=== PATIENT | female | born 1950 | race Caucasian/White ===

== ENCOUNTER 2016-10-18 21:22 | Inpatient (IN) | payer MEDICARE ==
[2016-10-18 23:00] LABS: Hematocrit 20 % (35-47); Hemoglobin 6.5 g/dl (12.0-16.0); Mean Corpuscular HGB Conc 34 g/dl (31-36); Mean Corpuscular Hemoglobin 33 pg (27-31); Mean Corpuscular Volume 98 fL (80-97); Mean Platelet Volume 8 um3 (7.4-10.4); Red Blood Count 1.99 10^6/ul (4.0-5.4)
[2016-10-18 23:04] LABS: Comments Flag Yes
[2016-10-18 23:05] LABS: Red Cell Distribution Width 26 % (10.5-15); White Blood Count 1.8 10^3/ul (3.5-10.8)
[2016-10-18 23:08] LABS: Add Diff/Slide Review? Slide Review Added
[2016-10-18 23:18] LABS: Albumin 3.4 g/dL (3.2-5.2); BUN/Creatinine Ratio 9.3 (8-20); C Reactive Protein 85.44 mg/L (< 5.00); Calcium 7.8 mg/dL (8.6-10.3); EGFR African American 74.1 (>60); EGFR Non-African American 57.6 (>60); Potassium 3.3 mmol/L (3.5-5.0); Total Bilirubin 0.6 mg/dL (0.2-1.0); Total Protein 5.4 g/dL (6.4-8.9)
[2016-10-18 23:19] LABS: Troponin I 0.01 ng/mL (<0.04)
[2016-10-18] MEDS ORDERED: Cefepime(*) 2 GM in NS 0.9% 50 ML* 50 ML IVPB ONE (23:20)
[2016-10-18] MEDS ORDERED: NS 0.9% 50 ML* 50 ML ONE (23:23)
--- NOTE | 2016-10-18 23:36 | HP ---
H&P (Free Text) History and Physical: PCP: Vito Carlson MD Oncology: Zunilda Rojas MD Cardiology: Zunilda Plunkett MD Date/Time of Evaluation: 10/18/2015 2330 CC: fever HPI: Mrs Hernandez is a 66YO female HX multiple myeloma on therapy who reports upper respiratory symptoms of mild congestion and cough productive of scant green phlegm for the past ~1 week. Today she developed a fever at home of 101.5F via otic thermometer confirmed orally. She called Joanna Mckeon MD oncology on- call who advised her to present for evaluation. She denies N/V/D, headache, earache, sore throat, abdominal pain, SOB, rash, or wound. Work up is notable for an ANC of 0.6k. Vitals are stable with soft pressures (nursing confirmed the 67/33 was not accurate). Labs shows stable pancytopenia & stable renal function. CXR is negative. UA is negative. PMedHx multiple myeloma on therapy s/p failed bone marrow transplant spontaneous subdural hematoma s/p evacuation while on warfarin CAD/NM/2vCABG ischemic cardiomyopathy w/ AICD placement, EF 30-35% HLD hypothyroidism peptic ulcer disease BPV Allergies Penicillins [PCN] Allergy (Verified 10/19/16 00:10) Unknown Reaction Details Tramadol Adverse Reaction (Intermediate, Verified 10/19/16 00:10) GI Upset Ambulatory Orders Atorvastatin* [Lipitor*] 10 mg PO BEDTIME 07/27/12 Liothyronine Sodium [Cytomel] 5 mcg PO QAM 07/27/12 Carvedilol TAB* [Coreg TAB*] 0.5 tab PO BID 12/02/15 LORazepam TAB(*) [Ativan TAB(*)] 0.5 mg PO BEDTIME PRN 12/02/15 Ondansetron TAB* [Zofran Tab*] 4 mg PO Q6H PRN 12/02/15 Nutritional Supplements [Boost] 1 - 2 dose PO DAILY 05/31/16 oxyCODONE TAB* [Roxycodone TAB 5 mg*] 0.5 - 1 tab PO Q12H PRN 05/31/16 Levothyroxine TAB* [Synthroid 75 MCG TAB*] 75 mcg PO 0600 tab 06/26/16 Aspirin [Aspirin Adult Low Dose] 81 mg PO DAILY 10/19/16 Dexamethasone 40 mg PO WEEKLY 10/19/16 ValACYclovir (*) [Valtrex 500 mg (*)] 500 mg PO DAILY 10/19/16 PSurgHx B subdural evacuation tonsillectomy AICD placement 2vCABG bone marrow transplant SocHx: no tobacco, alcohol, or recreational drugs; retired insurance business analyst; lives with her , has 2 adult sons; full code status FamHx: reviewed, non-contributory ROS: as above, otherwise reviewed and all were negative Constitutional: NAD, normally developed, thin elderly white female vitals: Vital Signs Temp 36.8 C 10/19/16 00:23 Pulse 69 10/19/16 01:00 Resp 18 10/18/16 21:31 BP 90/58 10/19/16 01:00 Pulse Ox 97 10/19/16 01:00 Intake & Output 10/18/16 10/18/16 10/19/16 11:59 23:59 11:59 Intake Total 50 Balance 50 Weight 110 lb Intake: IV Fluids 50 HEENM: atraumatic; sclera/conjunctiva: non-icteric/clear; hearing: clinically intact; oropharynx: clear, mucosa moist Neck: soft tissue: non-tender, no nuchal rigidity; thyroid: normal Pulmonary: clear to auscultation bilaterally, good aeration, no accessory muscle use CV: RR/RR, normal S1S2, no carotid bruit, no jugular venous distention, 2+ B DP/ PT, no edema Abdominal: soft, non-distended, non-tender, no rebound/guarding/rigidity, normoactive bowel sounds, no hepatosplenomegaly or masses, no costovertebral angle tenderness Musculoskeletal: general: grossly intact; gait: stable Integumental: normal appearance and texture Psychiatric orientation: AA&O to PPS affect: pleasant mood: cooperative eye contact: good content: reliable responses: timely insight: good Testing: Lab Results 10/18/16 10/18/16 10/18/16 Range/Units 00:15 22:45 22:45 WBC 1.8 L (3.5-10.8) 10^3/ul RBC 1.99 L (4.0-5.4) 10^6/ul Hgb 6.5 L (12.0-16.0) g/dl Hct 20 L (35-47) % MCV 98 H (80-97) fL MCH 33 H (27-31) pg MCHC 34 (31-36) g/dl RDW 26 H (10.5-15) % Plt Count 74 L (150-450) 10^3/ul MPV 8 (7.4-10.4) um3 Neut % (Auto) 35.7 L (38-83) % Lymph % (Auto) 34.1 (25-47) % [place] % (Auto) 25.8 H (1-9) % Eos % (Auto) 3.1 (0-6) % Baso % (Auto) 1.3 (0-2) % Absolute Neuts (auto) 0.6 L* (1.5-7.7) 10^3/ul Absolute Lymphs (auto) 0.6 L (1.0-4.8) 10^3/ul Absolute Monos (auto) 0.5 (0-0.8) 10^3/ul Absolute Eos (auto) 0.1 (0-0.6) 10^3/ul Absolute Basos (auto) 0 (0-0.2) 10^3/ul Absolute Nucleated RBC 0 10^3/ul Nucleated RBC % 0.1 ESR (0-40) mm/Hr INR (Anticoag Therapy) 1.17 H (0.89-1.11) APTT 26.9 (26.0-36.3) seconds Sodium (133-145) mmol/L Potassium (3.5-5.0) mmol/L Chloride (101-111) mmol/L Carbon Dioxide (22-32) mmol/L Anion Gap (2-11) mmol/L BUN (6-24) mg/dL Creatinine (0.51-0.95) mg/dL Est GFR ( Amer) (>60) Est GFR (Non-Af Amer) (>60) BUN/Creatinine Ratio (8-20) Glucose (70-100) mg/dL Lactic Acid (0.5-2.0) mmol/L Calcium (8.6-10.3) mg/dL Total Bilirubin (0.2-1.0) mg/dL AST (13-39) U/L ALT (7-52) U/L Alkaline Phosphatase (34-104) U/L Troponin I (<0.04) ng/mL C-Reactive Protein (< 5.00) mg/L Total Protein (6.4-8.9) g/dL Albumin (3.2-5.2) g/dL Globulin (2-4) g/dL Albumin/Globulin Ratio (1-3) Urine Color Straw Urine Appearance Clear Urine pH 7.0 (5-9) Ur Specific [place] 1.003 L (1.010-1.030) Urine Protein Negative (Negative) Urine Ketones Negative (Negative) Urine Blood 1+ H (Negative) Urine Nitrate Negative (Negative) Urine Bilirubin Negative (Negative) Urine Urobilinogen Negative (Negative) Ur Leukocyte Esterase Negative (Negative) Urine WBC (Auto) Absent (Absent) Urine RBC (Auto) Trace(0-2/hpf) (Absent) Urine Bacteria Absent (Absent) Urine Glucose Negative (Negative) Influenza A (Rapid) (Negative) Influenza B (Rapid) (Negative) Blood Type Antibody Screen 10/18/16 10/18/16 10/18/16 Range/Units 22:45 22:45 22:45 WBC (3.5-10.8) 10^3/ul RBC (4.0-5.4) 10^6/ul Hgb (12.0-16.0) g/dl Hct (35-47) % MCV (80-97) fL MCH (27-31) pg MCHC (31-36) g/dl RDW (10.5-15) % Plt Count (150-450) 10^3/ul MPV (7.4-10.4) um3 Neut % (Auto) (38-83) % Lymph % (Auto) (25-47) % [place] % (Auto) (1-9) % Eos % (Auto) (0-6) % Baso % (Auto) (0-2) % Absolute Neuts (auto) (1.5-7.7) 10^3/ul Absolute Lymphs (auto) (1.0-4.8) 10^3/ul Absolute Monos (auto) (0-0.8) 10^3/ul Absolute Eos (auto) (0-0.6) 10^3/ul Absolute Basos (auto) (0-0.2) 10^3/ul Absolute Nucleated RBC 10^3/ul Nucleated RBC % ESR (0-40) mm/Hr INR (Anticoag Therapy) (0.89-1.11) APTT (26.0-36.3) seconds Sodium 132 L (133-145) mmol/L Potassium 3.3 L (3.5-5.0) mmol/L Chloride 104 (101-111) mmol/L Carbon Dioxide 18 L (22-32) mmol/L Anion Gap 10 (2-11) mmol/L BUN 9 (6-24) mg/dL Creatinine 0.97 H (0.51-0.95) mg/dL Est GFR ( Amer) 74.1 (>60) Est GFR (Non-Af Amer) 57.6 (>60) BUN/Creatinine Ratio 9.3 (8-20) Glucose 100 (70-100) mg/dL Lactic Acid 0.6 (0.5-2.0) mmol/L Calcium 7.8 L (8.6-10.3) mg/dL Total Bilirubin 0.60 (0.2-1.0) mg/dL AST 33 (13-39) U/L ALT 45 (7-52) U/L Alkaline Phosphatase 86 (34-104) U/L Troponin I 0.01 (<0.04) ng/mL C-Reactive Protein 85.44 H (< 5.00) mg/L Total Protein 5.4 L (6.4-8.9) g/dL Albumin 3.4 (3.2-5.2) g/dL Globulin 2.0 (2-4) g/dL Albumin/Globulin Ratio 1.7 (1-3) Urine Color Urine Appearance Urine pH (5-9) Ur Specific [place] (1.010-1.030) Urine Protein (Negative) Urine Ketones (Negative) Urine Blood (Negative) Urine Nitrate (Negative) Urine Bilirubin (Negative) Urine Urobilinogen (Negative) Ur Leukocyte Esterase (Negative) Urine WBC (Auto) (Absent) Urine RBC (Auto) (Absent) Urine Bacteria (Absent) Urine Glucose (Negative) Influenza A (Rapid) (Negative) Influenza B (Rapid) (Negative) Blood Type O Negative Antibody Screen Negative 10/18/16 10/18/16 Range/Units 22:54 23:10 WBC (3.5-10.8) 10^3/ul RBC (4.0-5.4) 10^6/ul Hgb (12.0-16.0) g/dl Hct (35-47) % MCV (80-97) fL MCH (27-31) pg MCHC (31-36) g/dl RDW (10.5-15) % Plt Count (150-450) 10^3/ul MPV (7.4-10.4) um3 Neut % (Auto) (38-83) % Lymph % (Auto) (25-47) % Coffee % (Auto) (1-9) % Eos % (Auto) (0-6) % Baso % (Auto) (0-2) % Absolute Neuts (auto) (1.5-7.7) 10^3/ul Absolute Lymphs (auto) (1.0-4.8) 10^3/ul Absolute Monos (auto) (0-0.8) 10^3/ul Absolute Eos (auto) (0-0.6) 10^3/ul Absolute Basos (auto) (0-0.2) 10^3/ul Absolute Nucleated RBC 10^3/ul Nucleated RBC % ESR > 120 H (0-40) mm/Hr INR (Anticoag Therapy) (0.89-1.11) APTT (26.0-36.3) seconds Sodium (133-145) mmol/L Potassium (3.5-5.0) mmol/L Chloride (101-111) mmol/L Carbon Dioxide (22-32) mmol/L Anion Gap (2-11) mmol/L BUN (6-24) mg/dL Creatinine (0.51-0.95) mg/dL Est GFR ( Amer) (>60) Est GFR (Non-Af Amer) (>60) BUN/Creatinine Ratio (8-20) Glucose (70-100) mg/dL Lactic Acid (0.5-2.0) mmol/L Calcium (8.6-10.3) mg/dL Total Bilirubin (0.2-1.0) mg/dL AST (13-39) U/L ALT (7-52) U/L Alkaline Phosphatase (34-104) U/L Troponin I (<0.04) ng/mL C-Reactive Protein (< 5.00) mg/L Total Protein (6.4-8.9) g/dL Albumin (3.2-5.2) g/dL Globulin (2-4) g/dL Albumin/Globulin Ratio (1-3) Urine Color Urine Appearance Urine pH (5-9) Ur Specific [place] (1.010-1.030) Urine Protein (Negative) Urine Ketones (Negative) Urine Blood (Negative) Urine Nitrate (Negative) Urine Bilirubin (Negative) Urine Urobilinogen (Negative) Ur Leukocyte Esterase (Negative) Urine WBC (Auto) (Absent) Urine RBC (Auto) (Absent) Urine Bacteria (Absent) Urine Glucose (Negative) Influenza A (Rapid) Negative (Negative) Influenza B (Rapid) Negative (Negative) Blood Type Antibody Screen CXR, personally reviewed: no acute process Impression: 66F HX multiple myeloma s/p failed bone marrow transplant on therapy presents with neutropenic fever 2nd acute bronchitis DIAGNOSIS & PLAN Primary neutropenic fever 2nd acute bronchitis : IV cefepime 2g Q8H : blood, urine, & sputum CXs : influenza negative : IVFs : neutropenic precautions : supportive care pancytopenia with macrocytic anemia : stable : type & screen : stool for occult blood : plan to observe for now given no clinical evidence of bleeding Secondary multiple myeloma : on therapy : s/p failed bone marrow transplant : oncology to manage spontaneous subdural hematoma : occurred while on warfarin : currently thrombocytopenic : will avoid anticoagulation CAD/NM/2vCABG : continue aspirin ischemic cardiomyopathy w/ AICD placement, EF 30-35% : cautious use of IVFs, monitor respiratory status : continue carvediolol HLD : continue atorvastatin hypothyroidism : continue levothyroxine & liothyronine peptic ulcer disease : omeprazole Admission Rational: inpatient for management of neutropenic fever inappropriate for outpatient setting DVTp: SCDs, hold anticoagulation 2nd thrombocytopenia & HX spontaneous ICH on warfarin Code Status: full HCP:
[2016-10-19 00:45] LABS: Urine Bacteria Absent (Absent); Urine Bilirubin Negative (Negative); Urine Glucose Negative (Negative); Urine Nitrite Negative (Negative)
[2016-10-19] MEDS ORDERED: Melatonin (NF) 3 MG TAB PO PRN (01:35)
[2016-10-19] MEDS ORDERED: oxyCODONE TAB* 5 MG TAB PO PRN (01:37)
[2016-10-19] MEDS: NS 0.9% 1000 ML* 1,000 ML IV SCH ×3 (03:12→20:27)
[2016-10-19] MEDS: Levothyroxine TAB* 75 MCG TAB PO SCH (05:25)
[2016-10-19] MEDS: Omeprazole CAP* 20 MG PO SCH (05:25)
[2016-10-19 06:41] LABS: Hematocrit 17 % (35-47); Mean Corpuscular HGB Conc 34 g/dl (31-36); Mean Corpuscular Hemoglobin 33 pg (27-31); Mean Corpuscular Volume 97 fL (80-97); Mean Platelet Volume 7 um3 (7.4-10.4); Red Blood Count 1.78 10^6/ul (4.0-5.4); Red Cell Distribution Width 26 % (10.5-15); White Blood Count 1.4 10^3/ul (3.5-10.8)
--- NOTE | 2016-10-19 06:46 | ED ---
amber Louis Timothy, scribed for Rogelio Brown MD on 10/18/16 at 2223 . HPI Febrile Illness - HPI Summary HPI Summary: Marii Hernandez is a 66 yo female presenting to [facility] with fever of 101.5 [employer]. Pt states she spoke to Dr. Mckeon's office and was told to present to [facility] for evaluation. She states she had a cold for the past week, which resolved except for a residual productive cough and nasal drainage, but denies fever up until that day. She self medicated with Tylenol at 2030. She cipriano any other Sx. Her Hx includes multiple myeloma, neutropenia, chemotherapy, hypothyroidism, [place], CAD , CABG, hypotension, irregular heartbeat, V-tach, asthma, ulcer, and acute renal failure - History of Current Complaint Chief Complaint: EDFever Time Seen by Provider: 10/18/16 22:11 Hx Obtained From: Patient Onset/Duration: Started Hours Ago, Resolved Time of Onset: 20:30 Timing: Constant Temperature: 101.5 F Initial Severity: Moderate Current Severity: Moderate Pain Intensity: 0 Pain Scale Used: 0-10 Numeric Aggravating Factors: Nothing Alleviating Factors: Nothing Associated Signs and Symptoms: Cough - Additional Pertinent History Primary Care Physician: [id number] - Allergy/Home Medications Allergies/Adverse Reactions: Allergies Allergy/AdvReac Type Severity Reaction Status Date / Time Penicillins [PCN] Allergy Unknown Verified 10/19/16 00:10 Reaction Details Tramadol AdvReac Intermediate GI Upset Verified 10/19/16 00:10 PMH/Surg Hx/FS Hx/Imm Hx Endocrine/Hematology History: Reports: Hx Thyroid Disease - HYPOTHYROIDISM Denies: Hx Diabetes Cardiovascular History: Reports: Hx Auto Implanted Cardiovert Defib, Hx Hypotension, Hx Pacemaker/ICD, Other Cardiovascular Problems/Disorders - VENTRICULAR TACHYCARDIA Denies: Hx Hypertension Respiratory History: Reports: Hx Asthma - ALLERGIES Denies: Hx Chronic Obstructive Pulmonary Disease (COPD) GI History: Reports: Hx Ulcer - HX DUODENOL ULCER 20 + YRS AGO History: Reports: Hx Acute Renal Failure Denies: Hx Dialysis Musculoskeletal History: Reports: Hx Arthritis - RIGHT ELBOW Denies: Hx Back Problems, Hx Osteoporosis Sensory History: Reports: Hx Contacts or Glasses Denies: Hx Hearing Aid Opthamlomology History: Reports: Hx Contacts or Glasses Neurological History: Denies: Hx Dementia, Hx Seizures - Cancer History Cancer Type, Location and Year: mult myeloma Hx Chemotherapy: Yes Hx Radiation Therapy: Yes - Surgical History Surgery Procedure, Year, and Place: DEFIBRILLATOR-. HEART SURGERY- OPEN- AGE 46. FX RIGHT ELBOW. TONSILS OUT ACHILD. [place] holes Hx Anesthesia Reactions: No Infectious Disease History: Yes Infectious Disease History: Denies: Traveled Outside the [place] in Last 30 Days - Family History Known Family History: Positive: Diabetes - Pt reports possible DM in mother Negative: Cardiac Disease - Social History Lives: With Family Alcohol Use: None Hx Substance Use: No Substance Use Type: Reports: None Hx Tobacco Use: No Smoking Status (MU): Never Smoked Tobacco Have You Smoked in the Last Year: No Review of Systems Positive: Fever Eyes: Negative Positive: Nasal Discharge. Negative: Sore Throat Cardiovascular: Negative Positive: Cough. Negative: Shortness Of Breath Gastrointestinal: Negative Genitourinary: Negative Musculoskeletal: Negative Skin: Negative Neurological: Negative Psychological: Normal All Other Systems Reviewed And Are Negative: Yes Physical Exam - Summary Physical Exam Summary: GENERAL: Awake, alert, oriented, no acute distress, very pleasant HEENT: Head is normocephalic, atraumatic, anicteric sclera, clear conjunctiva, mucous membranes moist, no erythema, no discharge, no lesions, neck is supple, trachea is midline, no JVD CARDIAC: Regular rate and rhythm, S1, S2, no rub, no murmur, no gallop, 2+ radial and pedal pulses bilaterally RESPIRATORY: Clear to auscultation bilaterally with no rales, rhonchi, or wheezes, non-tender ABDOMEN: Bowel sounds positive, no bruit, soft, non-tender, no CVA tenderness EXTREMITIES: No edema, warm, dry, moving all extremities in a grossly normal manner NEUROLOGICAL: Mood is appropriate, moving all extremities in a grossly normal manner Triage Information Reviewed: Yes Vital Signs On Initial Exam: Initial Vitals Temp Pulse Resp BP Pulse Ox 99.2 F 84 18 112/61 99 10/18/16 21:31 10/18/16 21:31 10/18/16 21:31 10/18/16 21:31 10/18/16 21:31 Vital Signs Reviewed: Yes Diagnostics - Vital Signs Vital Signs Temp Pulse Resp BP Pulse Ox 10/18/16 21:31 99.2 F 84 18 112/61 99 - Laboratory Lab Results: Lab Results 10/18/16 10/18/16 10/18/16 Range/Units 00:15 22:45 22:45 WBC 1.8 L (3.5-10.8) 10^3/ul RBC 1.99 L (4.0-5.4) 10^6/ul Hgb 6.5 L (12.0-16.0) g/dl Hct 20 L (35-47) % MCV 98 H (80-97) fL MCH 33 H (27-31) pg MCHC 34 (31-36) g/dl RDW 26 H (10.5-15) % Plt Count 74 L (150-450) 10^3/ul MPV 8 (7.4-10.4) um3 Neut % (Auto) 35.7 L (38-83) % Lymph % (Auto) 34.1 (25-47) % [place] % (Auto) 25.8 H (1-9) % Eos % (Auto) 3.1 (0-6) % Baso % (Auto) 1.3 (0-2) % Absolute Neuts (auto) 0.6 L* (1.5-7.7) 10^3/ul Absolute Lymphs (auto) 0.6 L (1.0-4.8) 10^3/ul Absolute Monos (auto) 0.5 (0-0.8) 10^3/ul Absolute Eos (auto) 0.1 (0-0.6) 10^3/ul Absolute Basos (auto) 0 (0-0.2) 10^3/ul Absolute Nucleated RBC 0 10^3/ul Nucleated RBC % 0.1 ESR (0-40) mm/Hr INR (Anticoag Therapy) 1.17 H (0.89-1.11) APTT 26.9 (26.0-36.3) seconds Sodium (133-145) mmol/L Potassium (3.5-5.0) mmol/L Chloride (101-111) mmol/L Carbon Dioxide (22-32) mmol/L Anion Gap (2-11) mmol/L BUN (6-24) mg/dL Creatinine (0.51-0.95) mg/dL Est GFR ( Amer) (>60) Est GFR (Non-Af Amer) (>60) BUN/Creatinine Ratio (8-20) Glucose (70-100) mg/dL Lactic Acid (0.5-2.0) mmol/L Calcium (8.6-10.3) mg/dL Total Bilirubin (0.2-1.0) mg/dL AST (13-39) U/L ALT (7-52) U/L Alkaline Phosphatase (34-104) U/L Troponin I (<0.04) ng/mL C-Reactive Protein (< 5.00) mg/L Total Protein (6.4-8.9) g/dL Albumin (3.2-5.2) g/dL Globulin (2-4) g/dL Albumin/Globulin Ratio (1-3) Urine Color Straw Urine Appearance Clear Urine pH 7.0 (5-9) Ur Specific [place] 1.003 L (1.010-1.030) Urine Protein Negative (Negative) Urine Ketones Negative (Negative) Urine Blood 1+ H (Negative) Urine Nitrate Negative (Negative) Urine Bilirubin Negative (Negative) Urine Urobilinogen Negative (Negative) Ur Leukocyte Esterase Negative (Negative) Urine WBC (Auto) Absent (Absent) Urine RBC (Auto) Trace(0-2/hpf) (Absent) Urine Bacteria Absent (Absent) Urine Glucose Negative (Negative) Influenza A (Rapid) (Negative) Influenza B (Rapid) (Negative) Blood Type Antibody Screen 10/18/16 10/18/16 10/18/16 Range/Units 22:45 22:45 22:45 WBC (3.5-10.8) 10^3/ul RBC (4.0-5.4) 10^6/ul Hgb (12.0-16.0) g/dl Hct (35-47) % MCV (80-97) fL MCH (27-31) pg MCHC (31-36) g/dl RDW (10.5-15) % Plt Count (150-450) 10^3/ul MPV (7.4-10.4) um3 Neut % (Auto) (38-83) % Lymph % (Auto) (25-47) % [place] % (Auto) (1-9) % Eos % (Auto) (0-6) % Baso % (Auto) (0-2) % Absolute Neuts (auto) (1.5-7.7) 10^3/ul Absolute Lymphs (auto) (1.0-4.8) 10^3/ul Absolute Monos (auto) (0-0.8) 10^3/ul Absolute Eos (auto) (0-0.6) 10^3/ul Absolute Basos (auto) (0-0.2) 10^3/ul Absolute Nucleated RBC 10^3/ul Nucleated RBC % ESR (0-40) mm/Hr INR (Anticoag Therapy) (0.89-1.11) APTT (26.0-36.3) seconds Sodium 132 L (133-145) mmol/L Potassium 3.3 L (3.5-5.0) mmol/L Chloride 104 (101-111) mmol/L Carbon Dioxide 18 L (22-32) mmol/L Anion Gap 10 (2-11) mmol/L BUN 9 (6-24) mg/dL Creatinine 0.97 H (0.51-0.95) mg/dL Est GFR ( Amer) 74.1 (>60) Est GFR (Non-Af Amer) 57.6 (>60) BUN/Creatinine Ratio 9.3 (8-20) Glucose 100 (70-100) mg/dL Lactic Acid 0.6 (0.5-2.0) mmol/L Calcium 7.8 L (8.6-10.3) mg/dL Total Bilirubin 0.60 (0.2-1.0) mg/dL AST 33 (13-39) U/L ALT 45 (7-52) U/L Alkaline Phosphatase 86 (34-104) U/L Troponin I 0.01 (<0.04) ng/mL C-Reactive Protein 85.44 H (< 5.00) mg/L Total Protein 5.4 L (6.4-8.9) g/dL Albumin 3.4 (3.2-5.2) g/dL Globulin 2.0 (2-4) g/dL Albumin/Globulin Ratio 1.7 (1-3) Urine Color Urine Appearance Urine pH (5-9) Ur Specific [place] (1.010-1.030) Urine Protein (Negative) Urine Ketones (Negative) Urine Blood (Negative) Urine Nitrate (Negative) Urine Bilirubin (Negative) Urine Urobilinogen (Negative) Ur Leukocyte Esterase (Negative) Urine WBC (Auto) (Absent) Urine RBC (Auto) (Absent) Urine Bacteria (Absent) Urine Glucose (Negative) Influenza A (Rapid) (Negative) Influenza B (Rapid) (Negative) Blood Type O Negative Antibody Screen Negative 10/18/16 10/18/16 Range/Units 22:54 23:10 WBC (3.5-10.8) 10^3/ul RBC (4.0-5.4) 10^6/ul Hgb (12.0-16.0) g/dl Hct (35-47) % MCV (80-97) fL MCH (27-31) pg MCHC (31-36) g/dl RDW (10.5-15) % Plt Count (150-450) 10^3/ul MPV (7.4-10.4) um3 Neut % (Auto) (38-83) % Lymph % (Auto) (25-47) % [place] % (Auto) (1-9) % Eos % (Auto) (0-6) % Baso % (Auto) (0-2) % Absolute Neuts (auto) (1.5-7.7) 10^3/ul Absolute Lymphs (auto) (1.0-4.8) 10^3/ul Absolute Monos (auto) (0-0.8) 10^3/ul Absolute Eos (auto) (0-0.6) 10^3/ul Absolute Basos (auto) (0-0.2) 10^3/ul Absolute Nucleated RBC 10^3/ul Nucleated RBC % ESR > 120 H (0-40) mm/Hr INR (Anticoag Therapy) (0.89-1.11) APTT (26.0-36.3) seconds Sodium (133-145) mmol/L Potassium (3.5-5.0) mmol/L Chloride (101-111) mmol/L Carbon Dioxide (22-32) mmol/L Anion Gap (2-11) mmol/L BUN (6-24) mg/dL Creatinine (0.51-0.95) mg/dL Est GFR ( Amer) (>60) Est GFR (Non-Af Amer) (>60) BUN/Creatinine Ratio (8-20) Glucose (70-100) mg/dL Lactic Acid (0.5-2.0) mmol/L Calcium (8.6-10.3) mg/dL Total Bilirubin (0.2-1.0) mg/dL AST (13-39) U/L ALT (7-52) U/L Alkaline Phosphatase (34-104) U/L Troponin I (<0.04) ng/mL C-Reactive Protein (< 5.00) mg/L Total Protein (6.4-8.9) g/dL Albumin (3.2-5.2) g/dL Globulin (2-4) g/dL Albumin/Globulin Ratio (1-3) Urine Color Urine Appearance Urine pH (5-9) Ur Specific [place] (1.010-1.030) Urine Protein (Negative) Urine Ketones (Negative) Urine Blood (Negative) Urine Nitrate (Negative) Urine Bilirubin (Negative) Urine Urobilinogen (Negative) Ur Leukocyte Esterase (Negative) Urine WBC (Auto) (Absent) Urine RBC (Auto) (Absent) Urine Bacteria (Absent) Urine Glucose (Negative) Influenza A (Rapid) Negative (Negative) Influenza B (Rapid) Negative (Negative) Blood Type Antibody Screen Result Diagrams: 10/18/16 22:45 10/18/16 22:45 Lab Statement: Any lab studies that have been ordered have been reviewed, and results considered in the medical decision making process. Course/Dx - Diagnoses Provider Diagnoses: pancytopenia with fever - Provider Notifications Discussed Care Of Patient With: Antoinette Singer (hospitalist) - Discussed Pt condition. Agreed to admit Pt. Instructed by Provider To: Admit As Inpatient Discharge - Discharge Plan Condition: Stable Disposition: ADMITTED TO [facility] The documentation as recorded by the amber miller Timothy accurately reflects the service I personally performed and the decisions made by Kevin krishnan Steven, MD.
[2016-10-19 06:55] LABS: BUN/Creatinine Ratio 9.3 (8-20); Calcium 7.2 mg/dL (8.6-10.3); EGFR African American 85.2 (>60); EGFR Non-African American 66.2 (>60); Potassium 3.3 mmol/L (3.5-5.0)
[2016-10-19 07:03] LABS: Comments Flag Yes
[2016-10-19 07:05] LABS: Hemoglobin 5.9 g/dl (12.0-16.0)
[2016-10-19 07:07] LABS: Add Diff/Slide Review? Slide Review Added
--- NOTE | 2016-10-19 07:32 | RAD ---
HISTORY: Fever, chemotherapy COMPARISONS: June 14, 2016 VIEWS:1: Single frontal portable view of the chest at 11:02 PM FINDINGS: LINES AND TUBES: A left-sided ICD is noted CARDIOMEDIASTINAL SILHOUETTE: The cardiomediastinal silhouette is normal for portable technique. PLEURA: The costophrenic angles are sharp. No pleural abnormalities are noted. LUNG PARENCHYMA: There is minimal patchy alveolar opacification of left lung base ABDOMEN: The upper abdomen is clear. There is no subphrenic gas. BONES AND SOFT TISSUES: The patient is status post median sternotomy. IMPRESSION: MINIMAL PATCHY AIRSPACE DISEASE OF THE LEFT LUNG BASE. RECOMMEND FOLLOW-UP UNTIL RESOLUTION TO EXCLUDE UNDERLYING PULMONARY PARENCHYMAL PATHOLOGY.
[2016-10-19] MEDS ORDERED: Cefepime(*) 2 GM in NS 0.9% 50 ML* 50 ML IVPB SCH (08:00)
[2016-10-19] MEDS: Docusate CAP* 100 MG PO SCH ×2 (08:46→20:05)
[2016-10-19] MEDS: Liothyronine TAB* 5 MCG PO SCH (08:47)
[2016-10-19] MEDS: ValACYclovir (*) 500 MG TAB PO SCH (08:47)
[2016-10-19] MEDS: guaiFENesin ER TAB 600 MG PO SCH ×2 (08:47→20:04)
[2016-10-19] MEDS ORDERED: diPHENhydraMINE PO* 25 MG ONE (09:11)
[2016-10-19] MEDS: Acetaminophen TAB* 325 MG PO PRN ×2 (09:13→20:03)
[2016-10-19] MEDS: Aspirin EC Low Dose* 81 MG TAB.EC PO SCH (12:02)
[2016-10-19] MEDS: Carvedilol TAB* 6.25 MG PO SCH ×2 (12:03→20:06)
[2016-10-19 12:29] LABS: Hematocrit 22 % (35-47); Hemoglobin 7.6 g/dl (12.0-16.0)
[2016-10-19 12:30] LABS: Comments Flag Yes
[2016-10-19] MEDS: Ondansetron INJ* 2 MG/ML VIAL IV PRN (16:30)
[2016-10-19] MEDS: Cefepime(*) 2 GM in NS 0.9% 50 ML* 50 ML IVPB SCH (20:04)
[2016-10-19] MEDS: Atorvastatin* 10 MG TAB PO SCH (20:04)
[2016-10-19] MEDS: Potassium Chlor TAB* 20 MEQ TAB.ER PO SCH (20:05)
[2016-10-19] MEDS: LORazepam TAB(*) 0.5 MG PO PRN (20:12)
[2016-10-19 22:04] LABS: Hematocrit 25 % (35-47); Hemoglobin 8.6 g/dl (12.0-16.0)
[2016-10-19 22:06] LABS: Comments Flag Yes
[2016-10-20] MEDS: Cefepime(*) 2 GM in NS 0.9% 50 ML* 50 ML IVPB SCH ×3 (04:11→20:12)
[2016-10-20] MEDS: Acetaminophen TAB* 325 MG PO PRN ×2 (04:12→16:55)
[2016-10-20] MEDS: Levothyroxine TAB* 75 MCG TAB PO SCH (05:38)
[2016-10-20] MEDS: NS 0.9% 1000 ML* 1,000 ML IV SCH ×3 (05:38→23:34)
[2016-10-20] MEDS: Omeprazole CAP* 20 MG PO SCH (05:39)
[2016-10-20 07:49] LABS: Hematocrit 26 % (35-47); Hemoglobin 8.7 g/dl (12.0-16.0); Mean Corpuscular HGB Conc 34 g/dl (31-36); Mean Corpuscular Hemoglobin 32 pg (27-31); Mean Corpuscular Volume 94 fL (80-97); Mean Platelet Volume 7 um3 (7.4-10.4); Red Blood Count 2.71 10^6/ul (4.0-5.4); Red Cell Distribution Width 23 % (10.5-15); White Blood Count 1.6 10^3/ul (3.5-10.8)
[2016-10-20 07:59] LABS: Albumin 2.9 g/dL (3.2-5.2); BUN/Creatinine Ratio 10.3 (8-20); Calcium 7.5 mg/dL (8.6-10.3); EGFR African American 95.3 (>60); EGFR Non-African American 74.1 (>60); Globulin 2.1 g/dL (2-4); Magnesium 1.7 mg/dL (1.9-2.7); Potassium 3.4 mmol/L (3.5-5.0); Total Bilirubin 0.5 mg/dL (0.2-1.0)
[2016-10-20 08:04] LABS: Add Diff/Slide Review? Slide Review Added; Comments Flag Yes
[2016-10-20] MEDS: Ondansetron INJ* 2 MG/ML VIAL IV PRN (08:15)
[2016-10-20] MEDS: Aspirin EC Low Dose* 81 MG TAB.EC PO SCH (08:16)
[2016-10-20] MEDS: Carvedilol TAB* 6.25 MG PO SCH ×2 (08:16→20:12)
[2016-10-20] MEDS: Potassium Chlor TAB* 20 MEQ TAB.ER PO SCH ×2 (08:16→20:13)
[2016-10-20] MEDS: guaiFENesin ER TAB 600 MG PO SCH ×2 (08:16→20:13)
[2016-10-20] MEDS: ValACYclovir (*) 500 MG TAB PO SCH (08:16)
[2016-10-20] MEDS: Liothyronine TAB* 5 MCG PO SCH (08:16)
[2016-10-20] MEDS: Docusate CAP* 100 MG PO SCH ×2 (08:17→20:14)
[2016-10-20] MEDS ORDERED: Albuterol 2.5 MG/3 ML NEB.SOL* (0.083%) INH PRN (12:10)
[2016-10-20] MEDS ORDERED: Albuterol 2.5 MG/3 ML NEB.SOL* (0.083%) INH SCH (13:00)
[2016-10-20] MEDS: Atorvastatin* 10 MG TAB PO SCH (20:13)
[2016-10-20] MEDS: LORazepam TAB(*) 0.5 MG PO PRN (20:18)
[2016-10-21] MEDS: Acetaminophen TAB* 325 MG PO PRN (01:59)
[2016-10-21] MEDS: Cefepime(*) 2 GM in NS 0.9% 50 ML* 50 ML IVPB SCH (03:36)
[2016-10-21] MEDS: Levothyroxine TAB* 75 MCG TAB PO SCH (05:58)
[2016-10-21] MEDS: Omeprazole CAP* 20 MG PO SCH (06:01)
[2016-10-21 07:17] VITALS: BP 99/73
[2016-10-21] MEDS ORDERED: Dexamethasone TAB* 4 MG PO ONE (07:39)
--- NOTE | 2016-10-21 08:19 | DS ---
- Discharge Summary ADMIT DATE: 10/18/2016 DISCHARGE DATE: 10/21/2016 DISCHARGE DIAGNOSIS: 1: community acquired PNA 2. neutropenic fever 3. pancytopenia 4. multiple myeloma DISCHARGE MEDICATIONS: Acetaminophen (Tylenol Tab*) 650 mg PO Q6H PRN Aspirin (Aspirin Ec Low Dose*) 81 mg PO DAILY TATIANNA Atorvastatin Calcium (Lipitor*) 10 mg PO BEDTIME TATIANNA Carvedilol (Coreg Tab*) 3.125 mg PO BID TATIANNA Guaifenesin (Mucinex*) 1,200 mg PO BID TATIANNA Levothyroxine Sodium (Synthroid Tab*) 75 mcg PO 0600 TATIANNA Liothyronine Sodium (Cytomel Tab*) 5 mcg PO QAM TATIANNA Lorazepam (Ativan Tab(*)) 0.5 mg PO BEDTIME PRN PRN Reason: AGITATION/ANXIETY/INSOMNIA Melatonin (Melatonin (Nf)) 3 mg PO BEDTIME PRN; Protocol PRN Reason: Sleep Oxycodone HCl (Roxycodone Tab*) 5 mg PO Q12H PRN pain Valacyclovir HCl (Valtrex 500 Mg (*)) 500 mg PO DAILY TATIANNA Potassium Chloride (Klor Con Er Tab*) 20 meq PO BID TATIANNA Levaquin 750 mg PO daily x 4 days HOSPITAL COURSE: see full admit H+P. Briefly 66 yo F w nonischemic CHF and Multiple myeloma sp autoBMT with relapse most recently on pomalyst 4mg/daratumumab/dexamethasone presenting with an upper respiratory tract infection that started viral but persisted and progressed, with fever on the day of admission to 102. On admission she was started on cefepime and has defervesced. Her CXR shows a small left lower lobe pneumonia. Her blood cultures were negative and she feels better on antibiotics. She is in her week off of pomalyst. She will be discharged to complete a 7 day course of antibiotics, with PO levaquin. she will follow up in our office on Tuesday. If her ANC is 1000 she can resume her treatment. I will also check quantitative immunoglobulins as this is her second major infection requiring IV antibiotics. If her IgG is <500 she will have IVIG of 400mg/kg/day x 2 days next week and likely monthly. >30 mins spent on this discharge >50% in face to face counseling
[2016-10-21] MEDS: Carvedilol TAB* 6.25 MG PO SCH (08:29)
[2016-10-21] MEDS: guaiFENesin ER TAB 600 MG PO SCH (08:30)
[2016-10-21] MEDS: Potassium Chlor TAB* 20 MEQ TAB.ER PO SCH (08:30)
[2016-10-21] MEDS: Aspirin EC Low Dose* 81 MG TAB.EC PO SCH (08:32)
[2016-10-21] MEDS: ValACYclovir (*) 500 MG TAB PO SCH (08:32)
[2016-10-21] MEDS: Liothyronine TAB* 5 MCG PO SCH (08:32)
[2016-10-21] MEDS: Docusate CAP* 100 MG PO SCH (08:33)
[2016-10-21 09:09] LABS: Hematocrit 27 % (35-47); Hemoglobin 9.4 g/dl (12.0-16.0); Mean Corpuscular HGB Conc 35 g/dl (31-36); Mean Corpuscular Hemoglobin 33 pg (27-31); Mean Corpuscular Volume 95 fL (80-97); Mean Platelet Volume 7 um3 (7.4-10.4); Red Blood Count 2.89 10^6/ul (4.0-5.4)
[2016-10-21 09:12] LABS: Comments Flag Yes
[2016-10-21 09:13] LABS: Red Cell Distribution Width 24 % (10.5-15); White Blood Count 2.5 10^3/ul (3.5-10.8)
[2016-10-21 09:19] LABS: BUN/Creatinine Ratio 9.1 (8-20); Calcium 7.4 mg/dL (8.6-10.3); EGFR African American 96.8 (>60); EGFR Non-African American 75.2 (>60); Potassium 3.2 mmol/L (3.5-5.0)
[2016-10-22 16:09] LABS: Immunoglobulin A 2 mg/dL (61 - 356); Immunoglobulin G 122 mg/dL (767 - 1590); Immunoglobulin M <5 mg/dL (37 - 286)
== END 2016-10-21 10:15 | disposition home or self-care (01) | DRG 194 ==
LOC: ED 21:22 → MED 10-19 00:50
PROVIDERS: ADMIT Hospitalist; ATTEND Internal Medicine Hematology & Oncology
PROC: 30233N1 Transfusion of Nonautologous Red Blood Cells into Peripheral Vein, Percutaneous Approach (ICD-10-PCS; principal; 2016-10-19)
DX: J16.8 Pneumonia due to other specified infectious organisms (principal); D61.818 Other pancytopenia; D70.9 Neutropenia, unspecified; C90.00 Multiple myeloma not having achieved remission; I25.810 Atherosclerosis of coronary artery bypass graft(s) without angina pectoris; R50.81 Fever presenting with conditions classified elsewhere; I25.5 Ischemic cardiomyopathy; E78.5 Hyperlipidemia, unspecified; E03.9 Hypothyroidism, unspecified; K27.9 Peptic ulcer, site unspecified, unspecified as acute or chronic, without hemorrhage or perforation; I25.2 Old myocardial infarction; Z95.1 Presence of aortocoronary bypass graft; Z88.0 Allergy status to penicillin; Z88.8 Allergy status to other drugs, medicaments and biological substances; Z79.82 Long term (current) use of aspirin; Z79.891 Long term (current) use of opiate analgesic; Z79.899 Other long term (current) drug therapy; Z95.810 Presence of automatic (implantable) cardiac defibrillator
CPT/HCPCS: 36415; 71010; 80048; 80053; 81003; 81015; 82272; 82784; 83605; 83735; 84484; 85014; 85018; 85025; 85610; 85652; 85730; 86140; 86850; 86900; 86901; 86922; 87040; 87070; 87205; 87502; 87899; 99232; 99233; A9270-GY; J0692; J2405; J8540; P9040

== ENCOUNTER 2016-12-26 16:29 | Inpatient (IN) | payer MEDICARE ==
[2016-12-26] MEDS ORDERED: Acetaminophen TAB* 325 MG PO ONE (17:59)
[2016-12-26 18:11] LABS: Comments Flag Yes; Hematocrit 20 % (35-47); Mean Corpuscular HGB Conc 35 g/dl (31-36); Mean Corpuscular Hemoglobin 29 pg (27-31); Mean Corpuscular Volume 84 fL (80-97); Mean Platelet Volume 8 um3 (7.4-10.4); Red Blood Count 2.34 10^6/ul (4.0-5.4); Red Cell Distribution Width 16 % (10.5-15); White Blood Count 0.9 10^3/ul (3.5-10.8)
[2016-12-26 18:12] LABS: Add Diff/Slide Review? Slide Review Added; Hemoglobin 6.8 g/dl (12.0-16.0)
[2016-12-26 18:14] LABS: Albumin 3.7 g/dL (3.2-5.2); BUN/Creatinine Ratio 15.5 (8-20); Calcium 9.2 mg/dL (8.6-10.3); EGFR African American 74.1 (>60); EGFR Non-African American 57.6 (>60); Globulin 2.4 g/dL (2-4); Potassium 3.2 mmol/L (3.5-5.0); Total Bilirubin 0.8 mg/dL (0.2-1.0); Total Protein 6.1 g/dL (6.4-8.9)
[2016-12-26] MEDS ORDERED: Cefepime(*) 2 GM in NS 0.9% 50 ML* 50 ML IVPB ONE (18:31)
--- NOTE | 2016-12-26 18:31 | RAD ---
Indication: Sepsis. Fever. Multiple myeloma. Comparison: October 18, 2016 chest radiograph. Technique: Upright AP 1720 hours Report: Clear lungs and pleural spaces. Pacemaker control device partially obscures the peripheral LEFT mid lung zone. Negative for pleural effusion or pneumothorax. Median sternotomy wires and RIGHT ventricular level pacemaker lead. Upper normal heart size. Unremarkable central pulmonary vasculature. IMPRESSION: No evidence for pneumonia. No evidence for acute intrathoracic disease.
[2016-12-26] MEDS ORDERED: NS 0.9% 50 ML* 50 ML ONE (18:38)
--- NOTE | 2016-12-26 18:56 | ED ---
Jonathan Louis SooYoung, scribed for Son Dominguez MD on 12/26/16 at 1715 . HPI Febrile Illness - HPI Summary HPI Summary: A 66 y/o F presents to ED with fever onset this afternoon. Pt is receiving chemotherapy. Spoke with Dr. Silveira regarding the fever who referred her to ED. Associated sx: VELA. Denies congestion, cough. - History of Current Complaint Chief Complaint: EDFever Hx Obtained From: Patient, Family/It Business Analyst Onset/Duration: Started Hours Ago, Still Present Timing: Constant Temperature: 102.5 F - in ED Current Severity: Mild Pain Intensity: 3 Pain Scale Used: 0-10 Numeric - Additional Pertinent History Primary Care Physician: [id number] - Allergy/Home Medications Allergies/Adverse Reactions: Allergies Allergy/AdvReac Type Severity Reaction Status Date / Time Penicillins [PCN] Allergy Unknown Verified 12/15/16 15:11 Reaction Details Tramadol AdvReac Intermediate GI Upset Verified 12/15/16 15:11 PMH/Surg Hx/FS Hx/Imm Hx Previously Healthy: No Endocrine/Hematology History: Reports: Hx Blood Disorders - multiple myeloma, Hx Blood Transfusions, Hx Thyroid Disease - HYPOTHYROIDISM, Hx Anemia, Hx Unexplained Bleeding Denies: Hx Diabetes Cardiovascular History: Reports: Hx Auto Implanted Cardiovert Defib, Hx Hypercholesterolemia, Hx Hypotension, Hx Pacemaker/ICD, Other Cardiovascular Problems/Disorders - VENTRICULAR TACHYCARDIA Denies: Hx Hypertension Respiratory History: Reports: Hx Asthma - ALLERGIES Denies: Hx Chronic Obstructive Pulmonary Disease (COPD) GI History: Reports: Hx Ulcer - HX DUODENOL ULCER 20 + YRS AGO History: Reports: Hx Acute Renal Failure Denies: Hx Dialysis Musculoskeletal History: Reports: Hx Arthritis - RIGHT ELBOW Denies: Hx Back Problems, Hx Osteoporosis Sensory History: Reports: Hx Contacts or Glasses Denies: Hx Hearing Aid Opthamlomology History: Reports: Hx Contacts or Glasses Neurological History: Denies: Hx Dementia, Hx Seizures - Cancer History Cancer Type, Location and Year: mult myeloma Hx Chemotherapy: Yes Hx Radiation Therapy: Yes - Surgical History Surgery Procedure, Year, and Place: DEFIBRILLATOR-. HEART SURGERY- OPEN- AGE 46. FX RIGHT ELBOW. TONSILS OUT ACHILD. [place] holes Hx Anesthesia Reactions: No Infectious Disease History: No Infectious Disease History: Denies: Traveled Outside the [place] in Last 30 Days - Family History Known Family History: Positive: Diabetes - Pt reports possible DM in mother Negative: Cardiac Disease - Social History Occupation: Employed Full-time Lives: With Family Alcohol Use: None Hx Substance Use: No Substance Use Type: Reports: None Hx Tobacco Use: No Smoking Status (MU): Never Smoked Tobacco Have You Smoked in the Last Year: No Review of Systems Positive: Fever ENT: Other - neg: congestion Negative: Cough All Other Systems Reviewed And Are Negative: Yes Physical Exam Triage Information Reviewed: Yes Vital Signs On Initial Exam: Initial Vitals Temp Pulse Resp BP Pulse Ox 102.5 F 83 16 105/64 99 12/26/16 16:45 12/26/16 16:45 12/26/16 16:45 12/26/16 16:45 12/26/16 16:45 Vital Signs Reviewed: Yes Appearance: Positive: Well-Appearing, No Pain Distress Skin: Positive: Warm, Skin Color Reflects Adequate Perfusion, Dry Head/Face: Positive: Normal Head/Face Inspection Eyes: Positive: Normal ENT: Positive: Normal ENT inspection Neck: Positive: Supple, Nontender Respiratory/Lung Sounds: Positive: Clear to Auscultation, Breath Sounds Present Cardiovascular: Positive: RRR Musculoskeletal: Positive: Normal Neurological: Positive: Normal Psychiatric: Positive: Normal, Affect/Mood Appropriate Diagnostics - Vital Signs Vital Signs Temp Pulse Resp BP Pulse Ox 12/26/16 16:45 102.5 F 83 16 105/64 99 - Laboratory Lab Results: Lab Results 12/26/16 12/26/16 12/26/16 Range/Units 17:50 17:50 17:50 WBC 0.9 L (3.5-10.8) 10^3/ul RBC 2.34 L (4.0-5.4) 10^6/ul Hgb 6.8 L (12.0-16.0) g/dl Hct 20 L (35-47) % MCV 84 (80-97) fL MCH 29 (27-31) pg MCHC 35 (31-36) g/dl RDW 16 H (10.5-15) % Plt Count 6 L* (150-450) 10^3/ul MPV 8 (7.4-10.4) um3 Neut % (Auto) 24.5 L (38-83) % Lymph % (Auto) 49.5 H (25-47) % [place] % (Auto) 24.5 H (1-9) % Eos % (Auto) 0.7 (0-6) % Baso % (Auto) 0.8 (0-2) % Absolute Neuts (auto) 0.2 L* (1.5-7.7) 10^3/ul Absolute Lymphs (auto) 0.5 L (1.0-4.8) 10^3/ul Absolute Monos (auto) 0.2 (0-0.8) 10^3/ul Absolute Eos (auto) 0 (0-0.6) 10^3/ul Absolute Basos (auto) 0 (0-0.2) 10^3/ul Absolute Nucleated RBC 0 10^3/ul Nucleated RBC % 0.2 INR (Anticoag Therapy) 1.25 H (0.89-1.11) Sodium 136 (133-145) mmol/L Potassium 3.2 L (3.5-5.0) mmol/L Chloride 105 (101-111) mmol/L Carbon Dioxide 22 (22-32) mmol/L Anion Gap 9 (2-11) mmol/L BUN 15 (6-24) mg/dL Creatinine 0.97 H (0.51-0.95) mg/dL Est GFR ( Amer) 74.1 (>60) Est GFR (Non-Af Amer) 57.6 (>60) BUN/Creatinine Ratio 15.5 (8-20) Glucose 111 H (70-100) mg/dL Lactic Acid (0.5-2.0) mmol/L Calcium 9.2 (8.6-10.3) mg/dL Total Bilirubin 0.80 (0.2-1.0) mg/dL AST 18 (13-39) U/L ALT 21 (7-52) U/L Alkaline Phosphatase 87 (34-104) U/L Total Protein 6.1 L (6.4-8.9) g/dL Albumin 3.7 (3.2-5.2) g/dL Globulin 2.4 (2-4) g/dL Albumin/Globulin Ratio 1.5 (1-3) // Range/Units 17:50 WBC (3.5-10.8) 10^3/ul RBC (4.0-5.4) 10^6/ul Hgb (12.0-16.0) g/dl Hct (35-47) % MCV (80-97) fL MCH (27-31) pg MCHC (31-36) g/dl RDW (10.5-15) % Plt Count (150-450) 10^3/ul MPV (7.4-10.4) um3 Neut % (Auto) (38-83) % Lymph % (Auto) (25-47) % [place] % (Auto) (1-9) % Eos % (Auto) (0-6) % Baso % (Auto) (0-2) % Absolute Neuts (auto) (1.5-7.7) 10^3/ul Absolute Lymphs (auto) (1.0-4.8) 10^3/ul Absolute Monos (auto) (0-0.8) 10^3/ul Absolute Eos (auto) (0-0.6) 10^3/ul Absolute Basos (auto) (0-0.2) 10^3/ul Absolute Nucleated RBC 10^3/ul Nucleated RBC % INR (Anticoag Therapy) (0.89-1.11) Sodium (133-145) mmol/L Potassium (3.5-5.0) mmol/L Chloride (101-111) mmol/L Carbon Dioxide (22-32) mmol/L Anion Gap (2-11) mmol/L BUN (6-24) mg/dL Creatinine (0.51-0.95) mg/dL Est GFR ( Amer) (>60) Est GFR (Non-Af Amer) (>60) BUN/Creatinine Ratio (8-20) Glucose (70-100) mg/dL Lactic Acid 0.7 (0.5-2.0) mmol/L Calcium (8.6-10.3) mg/dL Total Bilirubin (0.2-1.0) mg/dL AST (13-39) U/L ALT (7-52) U/L Alkaline Phosphatase (34-104) U/L Total Protein (6.4-8.9) g/dL Albumin (3.2-5.2) g/dL Globulin (2-4) g/dL Albumin/Globulin Ratio (1-3) Result Diagrams: 12/26/16 17:50 12/26/16 17:50 Lab Statement: Any lab studies that have been ordered have been reviewed, and results considered in the medical decision making process. - Radiology CXR Xray Interpretation: No Acute Changes - IMPRESSION: No evidence for PNA. No evidence for acute intrathoracic dz. Radiology Interpretation Completed By: Radiologist Course/Dx - Course Course Of Treatment: Marii Hernandez presented with a neutropenic fever and pancytopenia. I'm still not sure of the source but she is getting Cefepime and platelets and will be admitted to the hospitalists. - Diagnoses Provider Diagnoses: Pancytopenia due to chemotherapy, Neutropenic fever - Provider Notifications Discussed Care Of Patient With: 184: Dr. Silveira, oncology, order platelets, admit. 184: Dr. Marquez, hospitalist, will admit pt Instructed by Provider To: Admit As Inpatient - Critical Care Time Critical Care Time: 30-74 min Discharge - Discharge Plan Condition: Stable Disposition: ADMITTED TO [facility] Referrals: Nita Rojas MD [Primary Care Provider] - The documentation as recorded by the Jonathan miller SooYoung accurately reflects the service I personally performed and the decisions made by me, Son Dominguez MD.
[2016-12-26] MEDS ORDERED: Ondansetron TAB* 4 MG PO PRN (20:20)
[2016-12-26] MEDS ORDERED: Potassium Chlor TAB* 20 MEQ TAB.ER PO SCH (21:00)
[2016-12-26] MEDS: NS 0.9% 1000 ML* 1,000 ML IV SCH (22:01)
[2016-12-26] MEDS: Carvedilol TAB* 3.125 MG PO SCH (23:10)
[2016-12-26] MEDS: LORazepam TAB(*) 0.5 MG PO PRN (23:10)
[2016-12-26] MEDS: Atorvastatin* 10 MG TAB PO SCH (23:10)
[2016-12-27] MEDS: Acetaminophen TAB* 325 MG PO PRN ×3 (00:58→14:05)
[2016-12-27 02:08] LABS: Comments Flag Yes; Mean Platelet Volume 7 um3 (7.4-10.4)
--- NOTE | 2016-12-27 02:34 | HP ---
HISTORY AND PHYSICAL: DATE OF ADMISSION: 12/26/16 ATTENDING PHYSICIAN: Dr. Maxime Nelson *(dictation provided by Eve Gonzales NP). CHIEF COMPLAINT: Fever. HISTORY OF PRESENT ILLNESS: Ms. Hernandez is a 66-year-old female with a past medical history of multiple myeloma, [place] at age 46, and nonischemic cardiomyopathy, who presents to the hospital today with concern for fever. Ms. Hernandez states that she has been having no symptoms of illness. She has had no chest pain, no cough, no shortness of breath, no nausea, no abdominal, no diarrhea, no new rashes or skin ulcerations. She has been visited by her son and granddaughter over the past few days. Last night, her noted that she was much more tired than usual. He attributed this to the busyness with visitors. Today, the patient was noted to have a fever to 100.5 at home and she called Dr. Rojas's office who instructed her to come to the emergency room. On arrival, the patient's temperature was 102.5. Ms. Hernandez has had a chest x-ray which is normal. Urinalysis is pending. Blood cultures have been drawn. Her white blood cell count is 0.9, which was consistent with previous; platelet count is low at 6; hemoglobin 6.8; hematocrit 20. Platelets have been ordered. PAST MEDICAL HISTORY: 1. Multiple myeloma, status post failed bone marrow transplant. 2. History of [place] at 46. 3. Nonischemic cardiomyopathy. 4. Spontaneous subdural hematoma, status post evacuation while on warfarin. 5. CABG x2. 6. AICD placement for EF 30% to 35%. 7. Hyperlipidemia. 8. Hypothyroidism. 9. Peptic ulcer disease. MEDICATIONS: 1. Calcium 600 mg p.o. daily. 2. Compazine 10 mg as needed. 3. Dexamethasone as directed. 4. Elotuzumab as directed.. 5. Pomalyst as directed. 6. Valacyclovir 500 mg p.o. daily. 7. Zometa as instructed. 8. Oxycodone p.r.n. 9. Aspirin 81 mg p.o. daily. 10. Atorvastatin 10 mg p.o. bedtime. 11. Carvedilol 3.125 mg p.o. b.i.d. 12. Lorazepam 0.5 mg p.o. bedtime. 13. Levothyroxine 75 mcg daily. 14. Liothyronine 5 mcg p.o. q.a.m. 15. Ondansetron 4 mg p.o. q.6 hours p.r.n. 16. Potassium chloride 20 mEq p.o. b.i.d. ALLERGIES: To PENICILLIN and TRAMADOL. FAMILY HISTORY: The patient reports her mother had heart failure and diabetes. Dad had dementia. SOCIAL HISTORY: No report of alcohol, tobacco or drug use. The patient lives with her , who is her healthcare proxy. REVIEW OF SYSTEMS: A 14-point review of systems was completed with Ms. Hernandez and all those not mentioned above were negative. PHYSICAL EXAMINATION GENERAL: Ms. Hernandez is sitting in the bed. She is irritated that she has to stay in the hospital overnight because her son is in town visiting but she is understanding. VITAL SIGNS: Temperature 102.5 on arrival, it is now 99.3; pulse rate 83; respiratory rate 20; O2 saturation 99% on room air; blood pressure 105/64. LUNGS: Lungs are clear to auscultation bilaterally with no accessory muscle use and good aeration. HEART: S1, S2. No murmur, rub, or gallop, and regular. ABDOMEN: Soft, nontender with bowel sounds positive x4. EXTREMITIES: No cyanosis or edema. NEURO: She is alert and oriented x3. She moves all extremities equally. There is no facial asymmetry or focal weakness. Extraocular movements are intact. SKIN: Intact. DIAGNOSTIC STUDIES/LAB DATA: INR 1.25. WBC 0.9, hemoglobin 6.8, hematocrit 20 , platelet count 6. Sodium 136, potassium 3.2, chloride 105, serum bicarbonate 22, BUN 15, creatinine 0.97, and glucose 111. Chest x-ray is negative for infiltrate. Blood cultures have been drawn. Lactic acid is 0.7. Urinalysis has been ordered and is pending. ASSESSMENT AND PLAN: Ms. Hernandez is a 66-year-old female with a past medical history of multiple myeloma, status post failed bone marrow transplant, currently being followed by the oncologist with ongoing treatment, who also has a history of myocardial infarction and cardiomyopathy with ejection fraction 30 % to 35%, who presents today to the hospital with a fever of 102.5. Plans are for admission to the hospital for the followin. Neutropenic fever. There is no source of fever identified as yet. Urinalysis is pending. Blood cultures are pending. Chest x-ray is negative. Lactic acid is normal. The patient has no acute other symptoms. Cefepime has been started. Plan to hold the patient's treatment for multiple myeloma given concern for infection. 2. Coronary artery disease with history of congestive heart failure and cardiomyopathy. No evidence of exacerbation. The patient is not on any agents or diuretics. Plan to monitor. 3. Hypothyroidism. Continue Synthroid and liothyronine. 4. Hypertension. Continue carvedilol. 5. Hyperlipidemia. Continue atorvastatin. 6. DVT prophylaxis with SCDs. 7. Code is full code. TIME SPENT: Approximately 60 minutes was spent on the admission of this patient , more than half the time spent with her at the [facility] reviewing the events leading up to this hospitalization, performing the physical examination, and reviewing the plan of care. EVE GONZALES NP CC: Dr. Rojas* [id number]/CPS #: [id number] DAVID
[2016-12-27] MEDS: Levothyroxine TAB* 75 MCG TAB PO SCH (05:30)
[2016-12-27] MEDS: Carvedilol TAB* 3.125 MG PO SCH ×2 (07:35→21:13)
[2016-12-27] MEDS: Liothyronine TAB* 5 MCG PO SCH (07:35)
[2016-12-27] MEDS: Potassium Chlor TAB* 20 MEQ TAB.ER PO SCH (07:35)
[2016-12-27] MEDS: NS 0.9% 1000 ML* 1,000 ML IV SCH (07:41)
[2016-12-27 08:46] LABS: Urine Bacteria Absent (Absent); Urine Bilirubin Negative (Negative); Urine Glucose Negative (Negative); Urine Nitrite Negative (Negative)
[2016-12-27] MEDS ORDERED: Potassium Chlor TAB* 10 MEQ TAB.ER PO SCH (09:00)
[2016-12-27] MEDS: Aspirin EC Low Dose* 81 MG TAB.EC PO SCH (10:18)
[2016-12-27] MEDS ORDERED: Cefepime(*) 2 GM in NS 0.9% 50 ML* 50 ML IVPB SCH (12:00)
[2016-12-27 13:45] LABS: BUN/Creatinine Ratio 13.8 (8-20); Calcium 8.2 mg/dL (8.6-10.3); EGFR Non-African American 65.3 (>60); Potassium 3.1 mmol/L (3.5-5.0)
[2016-12-27] MEDS ORDERED: Cefepime(*) 1 GM in NS 0.9% 50 ML* 50 ML IVPB SCH (19:00)
[2016-12-27] MEDS: Atorvastatin* 10 MG TAB PO SCH (21:13)
[2016-12-27] MEDS: oxyCODONE TAB* 5 MG TAB PO PRN (21:13)
[2016-12-27] MEDS: LORazepam TAB(*) 0.5 MG PO PRN (21:14)
[2016-12-27] MEDS: Cefepime(*) 2 GM in NS 0.9% 50 ML* 50 ML IVPB SCH (23:53)
[2016-12-28] MEDS: Acetaminophen TAB* 325 MG PO PRN ×3 (02:05→16:32)
[2016-12-28] MEDS: Levothyroxine TAB* 75 MCG TAB PO SCH (05:55)
[2016-12-28] MEDS: NS 0.9% 1000 ML* 1,000 ML IV SCH (05:55)
[2016-12-28 07:41] LABS: BUN/Creatinine Ratio 11.4 (8-20); Calcium 7.7 mg/dL (8.6-10.3); EGFR African American 82.9 (>60); EGFR Non-African American 64.5 (>60)
[2016-12-28 07:42] LABS: Comments Flag Yes; Hematocrit 13 % (35-47); Mean Corpuscular HGB Conc 35 g/dl (31-36); Mean Corpuscular Hemoglobin 29 pg (27-31); Mean Corpuscular Volume 85 fL (80-97); Mean Platelet Volume 7 um3 (7.4-10.4); Red Blood Count 1.56 10^6/ul (4.0-5.4); Red Cell Distribution Width 16 % (10.5-15)
[2016-12-28 07:43] LABS: White Blood Count 0.7 10^3/ul (3.5-10.8)
[2016-12-28 07:46] LABS: Hemoglobin 4.5 g/dl (12.0-16.0)
[2016-12-28] MEDS: Aspirin EC Low Dose* 81 MG TAB.EC PO SCH (08:31)
[2016-12-28] MEDS: Liothyronine TAB* 5 MCG PO SCH (08:36)
[2016-12-28] MEDS: Carvedilol TAB* 3.125 MG PO SCH ×2 (08:36→19:57)
[2016-12-28] MEDS: Potassium Chlor TAB* 20 MEQ TAB.ER PO SCH (08:36)
[2016-12-28] MEDS: LORazepam TAB(*) 0.5 MG PO PRN ×2 (11:58→19:58)
[2016-12-28] MEDS: Sulfamethox/Trimethoprim DS 800/160* TAB PO SCH ×2 (13:15→19:57)
[2016-12-28] MEDS: Clarithromycin TAB* 250 MG PO SCH ×2 (13:15→20:01)
[2016-12-28] MEDS: Cefepime(*) 2 GM in NS 0.9% 50 ML* 50 ML IVPB SCH (13:20)
[2016-12-28] MEDS: oxyCODONE TAB* 5 MG TAB PO PRN (19:58)
[2016-12-28] MEDS: Atorvastatin* 10 MG TAB PO SCH (19:58)
[2016-12-29] MEDS: Cefepime(*) 2 GM in NS 0.9% 50 ML* 50 ML IVPB SCH (00:01)
[2016-12-29] MEDS: Acetaminophen TAB* 325 MG PO PRN ×3 (00:05→17:20)
[2016-12-29] MEDS: Levothyroxine TAB* 75 MCG TAB PO SCH (06:22)
[2016-12-29] MEDS: Liothyronine TAB* 5 MCG PO SCH (09:12)
[2016-12-29] MEDS: Sulfamethox/Trimethoprim DS 800/160* TAB PO SCH ×2 (09:12→21:10)
[2016-12-29] MEDS: Clarithromycin TAB* 250 MG PO SCH ×2 (09:12→21:09)
[2016-12-29 09:15] LABS: Hematocrit 24 % (35-47); Hemoglobin 8.4 g/dl (12.0-16.0); Mean Corpuscular HGB Conc 35 g/dl (31-36); Mean Corpuscular Hemoglobin 29 pg (27-31); Mean Corpuscular Volume 83 fL (80-97); Mean Platelet Volume 7 um3 (7.4-10.4); Red Cell Distribution Width 15 % (10.5-15); White Blood Count 1.3 10^3/ul (3.5-10.8)
[2016-12-29 09:19] LABS: Add Diff/Slide Review? Slide Review Added; Comments Flag Yes
[2016-12-29] MEDS: Aspirin EC Low Dose* 81 MG TAB.EC PO SCH (09:26)
[2016-12-29] MEDS: Levofloxacin TAB* 500 MG PO SCH (09:39)
[2016-12-29] MEDS: Carvedilol TAB* 3.125 MG PO SCH ×2 (09:39→21:10)
[2016-12-29] MEDS: Potassium Chlor TAB* 20 MEQ TAB.ER PO SCH (09:39)
--- NOTE | 2016-12-29 09:44 | PN ---
Progress Note - Progress Note SOAP: Subjective: feeling better today after having received blood yesterday. overall discouraged with course of health. Tuesday would have been cycle 1 day 15. no nausea or vomiting. controlled mild pain. Objective: Vital Signs Temp Pulse Resp BP Pulse Ox 97.8 F 58 18 117/64 98 12/29/16 07:53 12/29/16 07:53 12/29/16 07:53 12/29/16 07:53 12/29/16 07:53 sitting up in nad perr eomi op moist cta bl s1 s2 nl soft nt +bs no le edema a+O x 3 nonfocal neurological exam Laboratory Results - last 24 hr 12/28/16 12/29/16 06:33 08:54 WBC 1.3 L RBC 2.90 L Hgb 8.4 L Hct 24 L MCV 83 MCH 29 MCHC 35 RDW 15 Plt Count 11 L MPV 7 L Neut % (Auto) 25.7 L Lymph % (Auto) 45.5 [place] % (Auto) 27.4 H Eos % (Auto) 0.8 Baso % (Auto) 0.6 Absolute Neuts (auto) 0.3 L Absolute Lymphs (auto) 0.6 L Absolute Monos (auto) 0.4 Absolute Eos (auto) 0 Absolute Basos (auto) 0 Absolute Nucleated RBC 0.01 Nucleated RBC % 0.5 Blood Type O Negative Antibody Screen Negative Direct Antiglob Test Negative Crossmatch See Detail Acetaminophen (Tylenol Tab*) 650 mg PO Q6H PRN PRN Reason: PAIN Last Admin: 12/29/16 07:45 Dose: 650 mg Atorvastatin Calcium (Lipitor*) 10 mg PO BEDTIME [facility] Last Admin: 12/28/16 19:58 Dose: 10 mg Carvedilol (Coreg Tab*) 3.125 mg PO BID TATIANNA Last Admin: 12/29/16 09:39 Dose: 3.125 mg Clarithromycin (Biaxin Tab*) 250 mg PO Q12HR [facility] Last Admin: 12/29/16 09:12 Dose: 250 mg Levofloxacin (Levaquin Tab*) 500 mg PO Q24H TATIANNA Last Admin: 12/29/16 09:39 Dose: 500 mg Levothyroxine Sodium (Synthroid Tab*) 75 mcg PO 0600 [facility] Last Admin: 12/29/16 06:22 Dose: 75 mcg Liothyronine Sodium (Cytomel Tab*) 5 mcg PO QAM [facility] Last Admin: 12/29/16 09:12 Dose: 5 mcg Lorazepam (Ativan Tab(*)) 0.5 mg PO BEDTIME PRN PRN Reason: AGITATION/ANXIETY/INSOMNIA Last Admin: 12/28/16 19:58 Dose: 0.5 mg Ondansetron HCl (Zofran Tab*) 4 mg PO Q6H PRN PRN Reason: NAUSEA/VOMITING Oxycodone HCl (Roxycodone Tab*) 5 mg PO Q4H PRN PRN Reason: PAIN Last Admin: 12/28/16 19:58 Dose: 5 mg Potassium Chloride (Klor Con Er Tab*) 20 meq PO 0900 [facility] Last Admin: 12/29/16 09:39 Dose: 20 meq Trimethoprim/Sulfamethoxazole (Bactrim Ds 800/160 Tab*) 1 tab PO BID [facility] Last Admin: 12/29/16 09:12 Dose: 1 tab Assessment: []66 yo F w refractory multiple myeloma on cycle 1 of palliative elotuzumab, pomalidamide, dexamethasone, clarithromycin admitted with severe pancytopenia. We discussed this at length. We discussed that she is running out of treatment options for her cancer. At this point I would recommended trying to complete this cycle (resuming therapy on the 27 as cycle 1 day 15) and one more cycle with transfusion support and then repeating her bone marrow biopsy. If there is no response we discussed that her options at that point would be hospice vs. trying palliative panobinostat or bendamustine. I would recommend bendamustine if we do decide on further therapy as he seems refractory to the novel agents. At this point we will try transitioning to oral antibiotics and keep her on levaquin indefinitely. If she remains afebrile x 24 hrs we will discharge her tomorrow. I will stop her aspirin that the hospitalist started on admission given her severe thrombocytopenia.
[2016-12-29 10:02] LABS: BUN/Creatinine Ratio 8.2 (8-20); Calcium 8.2 mg/dL (8.6-10.3); EGFR African American 74.1 (>60); EGFR Non-African American 57.6 (>60); Potassium 3.1 mmol/L (3.5-5.0)
[2016-12-29] MEDS: KCL 20 MEQ/100 ML IVPREMIX* 20 MEQ/100 ML BAG IV SCH ×3 (15:37→20:14)
[2016-12-29 15:55] LABS: Mean Platelet Volume 7 um3 (7.4-10.4)
[2016-12-29 15:56] LABS: Comments Flag Yes
[2016-12-29] MEDS: Atorvastatin* 10 MG TAB PO SCH (21:09)
[2016-12-29] MEDS: LORazepam TAB(*) 0.5 MG PO PRN (21:10)
[2016-12-29] MEDS: oxyCODONE TAB* 5 MG TAB PO PRN (21:11)
[2016-12-30] MEDS: Acetaminophen TAB* 325 MG PO PRN ×2 (00:11→07:52)
[2016-12-30] MEDS: Levothyroxine TAB* 75 MCG TAB PO SCH (06:43)
[2016-12-30 07:28] LABS: Hematocrit 24 % (35-47); Hemoglobin 8.3 g/dl (12.0-16.0); Mean Corpuscular HGB Conc 35 g/dl (31-36); Mean Corpuscular Hemoglobin 29 pg (27-31); Mean Corpuscular Volume 84 fL (80-97); Mean Platelet Volume 8 um3 (7.4-10.4); Red Blood Count 2.82 10^6/ul (4.0-5.4); Red Cell Distribution Width 15 % (10.5-15); White Blood Count 1.7 10^3/ul (3.5-10.8)
[2016-12-30 07:39] LABS: Add Diff/Slide Review? Slide Review Added; Comments Flag Yes
[2016-12-30 07:51] VITALS: BP 109/59
[2016-12-30 07:53] LABS: BUN/Creatinine Ratio 9.4 (8-20); Calcium 8.4 mg/dL (8.6-10.3); EGFR Non-African American 58.3 (>60); Potassium 3.5 mmol/L (3.5-5.0)
[2016-12-30] MEDS: Sulfamethox/Trimethoprim DS 800/160* TAB PO SCH (07:56)
--- NOTE | 2016-12-30 08:19 | DS ---
- Discharge Summary ADMIT DATE:12/26/2016 DISCHARGE DATE:12/30/2016 DISCHARGE DIAGNOSIS: 1. neutropenic fever, unclear source 2. severe pancytopenia 3. refractory multiple myeloma 4. hypokalemia 5. systolic heart failure without exacerbation DISCHARGE MEDICATIONS: Home Medications Medication Instructions Recorded Confirmed Type Atorvastatin* [Lipitor*] 10 mg PO BEDTIME 07/27/12 12/26/16 History Liothyronine Sodium [Cytomel] 5 mcg PO QAM 07/27/12 12/26/16 History Carvedilol TAB* [Coreg TAB*] 3.125 tab PO BID 12/02/15 12/26/16 History LORazepam TAB(*) [Ativan 0.5 MG 0.5 mg PO Q4H PRN 12/02/15 12/26/16 History TAB (*)] Ondansetron TAB* [Zofran 4 MG Tab*] 4 mg PO Q6H PRN 12/02/15 12/26/16 History oxyCODONE TAB* [Roxycodone TAB 5 5 tab PO Q4H PRN 05/31/16 12/26/16 History mg*] Levothyroxine TAB* [Synthroid 75 75 mcg PO 0600 tab 06/26/16 12/26/16 Rx MCG TAB*] Aspirin [Aspirin Adult Low Dose 81 81 mg PO DAILY 10/19/16 12/26/16 History MG] Dexamethasone 32 mg PO WEEKLY 10/19/16 12/15/16 History ValACYclovir (*) [Valtrex 500 mg 500 mg PO DAILY 10/19/16 12/26/16 History (*)] Calcium 600 600 mg PO DAILY 12/26/16 12/26/16 History Compazine Tab* 10 mg PO Q6H PRN 12/26/16 12/26/16 History Elotuzumab* IV WEEKLY 12/26/16 12/26/16 History Zometa* MONTHLY 12/26/16 History Clarithromycin TAB* [Biaxin 250 MG 500 mg PO Q12HR #120 tab 12/30/16 Rx TAB*] Levofloxacin TAB* [Levaquin 500 500 mg PO Q24H #30 tab 12/30/16 Rx Tab*] Potassium Chlor TAB* [Potassium 20 meq PO 0900 #30 tab.er 12/30/16 Rx Chlor TAB 20 MEQ*] Sulfamethox/Trimethoprim DS* 1 tab PO BID #24 tab 12/30/16 Rx [Bactrim DS 800/160 TAB*] TUE, TUE, TUESDAY RESUME POMALYST ON THURSDAY 01/04 DAY 15 hospital course: Marii was admitted on 12/26 with fevers and weakness. she was found to be profoundly pancytopenic, consistent with her progressive myeloma. She was transfused 2 U PRBC and 1 unit platelets and felt much better. her cultures are negative to date. she was transitioned to PO levaquin and remained afebrile. please see my note from 12/29 re: prognosis and plan. at this point she will go on indefinite PO abx until/hoping that ANC will improve. She will start pomalyst again on 01/04 as day 15 with her elotuzumab. Clarithromycin was added for anti-myeloma therapy per Dr. Baig's recommendation. Her potassium was increased as well.
[2016-12-30] MEDS: Potassium Chlor TAB* 20 MEQ TAB.ER PO SCH (08:33)
[2016-12-30] MEDS: Carvedilol TAB* 3.125 MG PO SCH (08:33)
[2016-12-30] MEDS: Liothyronine TAB* 5 MCG PO SCH (08:34)
[2016-12-30] MEDS: Clarithromycin TAB* 250 MG PO SCH (08:34)
[2016-12-30] MEDS: Levofloxacin TAB* 500 MG PO SCH (08:34)
== END 2016-12-30 10:10 | disposition home or self-care (01) | DRG 809 ==
LOC: ED 16:29 → SSU 19:02
PROVIDERS: ADMIT Internal Medicine; ATTEND Internal Medicine Hematology & Oncology
PROC: 30233R1 Transfusion of Nonautologous Platelets into Peripheral Vein, Percutaneous Approach (ICD-10-PCS; principal; 2016-12-29)
PROC: 30233N1 Transfusion of Nonautologous Red Blood Cells into Peripheral Vein, Percutaneous Approach (ICD-10-PCS; 2016-12-29)
DX: D70.9 Neutropenia, unspecified (principal); C90.00 Multiple myeloma not having achieved remission; I42.8 Other cardiomyopathies; I50.22 Chronic systolic (congestive) heart failure; E03.9 Hypothyroidism, unspecified; E78.00 Pure hypercholesterolemia, unspecified; J45.909 Unspecified asthma, uncomplicated; M19.021 Primary osteoarthritis, right elbow; E78.5 Hyperlipidemia, unspecified; K27.9 Peptic ulcer, site unspecified, unspecified as acute or chronic, without hemorrhage or perforation; I25.10 Atherosclerotic heart disease of native coronary artery without angina pectoris; R50.81 Fever presenting with conditions classified elsewhere; I11.0 Hypertensive heart disease with heart failure; D61.818 Other pancytopenia; E87.6 Hypokalemia; Z92.21 Personal history of antineoplastic chemotherapy; Z88.0 Allergy status to penicillin; Z88.6 Allergy status to analgesic agent; Z95.810 Presence of automatic (implantable) cardiac defibrillator; Z92.3 Personal history of irradiation; Z83.3 Family history of diabetes mellitus; I25.2 Old myocardial infarction; Z87.820 Personal history of traumatic brain injury; Z95.1 Presence of aortocoronary bypass graft; Z82.49 Family history of ischemic heart disease and other diseases of the circulatory system; Z82.0 Family history of epilepsy and other diseases of the nervous system; Z79.82 Long term (current) use of aspirin
CPT/HCPCS: 36415; 36430; 71010; 80048; 80053; 81003; 81015; 83605; 85025; 85049; 85610; 86850; 86880; 86900; 86901; 86922; 87040; 99233; 99239; A9270-GY; J0692; J3480; P9035; P9040

== ENCOUNTER 2017-01-05 19:05 | Emergency (ER) | payer MEDICARE ==
[2017-01-05] MEDS ORDERED: Ketorolac INJ* 30 MG/ML 1 ML VIAL IV ONE (19:31)
[2017-01-05] MEDS ORDERED: LORazepam INJ* 2 MG/ML 1 ML VIAL IV ONE (19:31)
--- NOTE | 2017-01-05 21:29 | RAD ---
HISTORY: Back pain, leg pain, multiple myeloma COMPARISONS: None TECHNIQUE: Multiple contiguous axial CT scans were obtained of the lumbar spine without intravenous contrast, with coronal and sagittal multiplanar reformations. FINDINGS: SPINAL CANAL: Evaluation of the central canal is limited on CT technique; however, there is no obvious canalicular mass or epidural hemorrhage. ALIGNMENT: The alignment is normal. VERTEBRAL BODIES: There is diffuse osteopenia. There is minimal sclerosis along the inferior endplates of T11 and T10, T12, and L1, without loss of vertebral body height or posterior retropulsion. There is minimal disruption of the cortex of the inferior endplate of T11. JOINTS: There is mild facet hypertrophy change MUSCULATURE: Unremarkable INTERVERTEBRAL DISCS: There is diffuse loss of intervertebral disc height throughout the spine. AXIAL IMAGES: T12-L1: There is no osseous neural foraminal narrowing or central canal stenosis. L1-L2: There is no osseous neural foraminal narrowing or central canal stenosis. L2-L3: There is no osseous neural foraminal narrowing or central canal stenosis. L3-L4: There is no osseous neural foraminal narrowing or central canal stenosis. L4-L5: There is no osseous neural foraminal narrowing or central canal stenosis. L5-S1: There is no osseous neural foraminal narrowing or central canal stenosis. SOFT TISSUES: The visualized soft tissues of the abdomen are unremarkable. OTHER: None IMPRESSION: 1. OSTEOPENIA. 2. MILD DEGENERATIVE CHANGES. 3. MINIMAL CORTICAL DISRUPTION OF THE INFERIOR ENDPLATE OF T11 WHICH MAY INDICATE A SUBACUTE COMPRESSION FRACTURE, WITHOUT SIGNIFICANT LOSS OF VERTEBRAL BODY HEIGHT OR OSSEOUS RETROPULSION. RECOMMEND CORRELATION WITH SITE OF PAIN 4. NO OSSEOUS NEURAL FORAMINAL AREA OR CENTRAL CANAL STENOSIS. 5. IF CLINICALLY INDICATED, FURTHER EVALUATION CAN BE PERFORMED WITH MRI IN THE NONACUTE SETTING
[2017-01-05 22:49] VITALS: BP 97/54
--- NOTE | 2017-01-06 08:26 | ED ---
Dameon Louis Billy, scribed for Son Dominguez MD on 01/05/17 at 1926 . Back Pain - HPI Summary HPI Summary: Patient is a 66 year-old female coming to [facility] with a complaint of intermittent back spasms. Patient was sent by Dr. Winter for evaluation in the ED. Pain severity 10. Oxycodone taken at 1730. She states that the pain radiates to the legs bilaterally, but she states that the leg pain is not a major concern for her at this time. She is able to bear weight and walk easily. Denies any weakness in the lower extremities or changes in bladder/bowel movements. Patient states that she is taking numerous different antibiotics and medications, including some new medications, and is also concerned for possible side effects. - History of Current Complaint Chief Complaint: EDBackInjuryPain Stated Complaint: BACK SPASMS-SENT BY DR WINTER Time Seen by Provider: 01/05/17 19:18 Hx Obtained From: Patient Onset/Duration: Gradual Onset Timing: Intermittent Back Pain Location: Is Discrete @ - lower back Severity Initially: Moderate Severity Currently: Moderate Pain Intensity: 6 Pain Scale Used: 0-10 Numeric - Allergies/Home Medications Allergies/Adverse Reactions: Allergies Allergy/AdvReac Type Severity Reaction Status Date / Time Penicillins [PCN] Allergy Unknown Verified 01/05/17 19:07 Reaction Details Tramadol AdvReac Intermediate GI Upset Verified 01/05/17 19:07 PMH/Surg Hx/FS Hx/Imm Hx Endocrine/Hematology History: Reports: Hx Blood Disorders - multiple myeloma, Hx Blood Transfusions, Hx Thyroid Disease - hypothyroidism, Hx Anemia, Hx Unexplained Bleeding Denies: Hx Diabetes Cardiovascular History: Reports: Hx Auto Implanted Cardiovert Defib, Hx Hypercholesterolemia, Hx Hypotension, Hx Pacemaker/ICD, Other Cardiovascular Problems/Disorders - VENTRICULAR TACHYCARDIA Denies: Hx Hypertension Respiratory History: Reports: Hx Asthma - ALLERGIES Denies: Hx Chronic Obstructive Pulmonary Disease (COPD) GI History: Reports: Hx Ulcer - HX DUODENOL ULCER 20 + YRS AGO History: Reports: Hx Acute Renal Failure Denies: Hx Dialysis Musculoskeletal History: Reports: Hx Arthritis - RIGHT ELBOW Denies: Hx Back Problems, Hx Osteoporosis Sensory History: Reports: Hx Contacts or Glasses Denies: Hx Hearing Aid Opthamlomology History: Reports: Hx Contacts or Glasses Neurological History: Denies: Hx Dementia, Hx Seizures - Cancer History Cancer Type, Location and Year: mult myeloma Hx Chemotherapy: Yes Hx Radiation Therapy: Yes - Surgical History Surgery Procedure, Year, and Place: DEFIBRILLATOR-. HEART SURGERY- OPEN- AGE 46. FX RIGHT ELBOW. TONSILS OUT ACHILD. Willie holes Hx Anesthesia Reactions: No Infectious Disease History: No Infectious Disease History: Denies: Traveled Outside the [place] in Last 30 Days - Family History Known Family History: Positive: Diabetes - Pt reports possible DM in mother Negative: Cardiac Disease - Social History Alcohol Use: None Hx Substance Use: No Substance Use Type: Reports: None Hx Tobacco Use: No Smoking Status (MU): Never Smoked Tobacco Have You Smoked in the Last Year: No Review of Systems Negative: Fever Positive: Other - lower back pain All Other Systems Reviewed And Are Negative: Yes Physical Exam Triage Information Reviewed: Yes Vital Signs On Initial Exam: Initial Vitals Temp Pulse Resp BP Pulse Ox 97.8 F 66 16 110/48 100 01/05/17 19:07 01/05/17 19:07 01/05/17 19:07 01/05/17 19:07 01/05/17 19:07 Vital Signs Reviewed: Yes Appearance: Positive: Well-Appearing, No Pain Distress Skin: Positive: Warm, Skin Color Reflects Adequate Perfusion, Dry Head/Face: Positive: Normal Head/Face Inspection Eyes: Positive: Normal Neck: Positive: Supple, Nontender Respiratory/Lung Sounds: Positive: Clear to Auscultation Cardiovascular: Positive: RRR Abdomen Description: Positive: Nontender, Soft Musculoskeletal: Positive: Strength/ROM Intact, Pain @ - Mild paralumbar tenderness., Other - Negative straight leg raise. Neurological: Positive: Normal, Sensory/Motor Intact, Alert, Oriented to Person Place, Time Psychiatric: Positive: Affect/Mood Appropriate AVPU Assessment: Alert Diagnostics - Vital Signs Vital Signs Temp Pulse Resp BP Pulse Ox 01/05/17 19:07 97.8 F 66 16 110/48 100 - Laboratory Lab Statement: Any lab studies that have been ordered have been reviewed, and results considered in the medical decision making process. - CT lumbar spine CT Interpretation: Positive (See Comments) CT Interpretation Completed By: Radiologist - See EMR* Back Pain Course/Dx - Course Course Of Treatment: Ms. Hernandez felt improved after ativan given as a muscle relaxer to stop the spasms. Her CT showed a small compression fracture which is likely the problem I don't know if this is pathological or not and will refer her back to Dr. Winter. - Diagnoses Provider Diagnoses: Back strain, Compression fracture Discharge - Discharge Plan Condition: Stable Disposition: HOME Patient Education Materials: Vertebral Compression Fracture (ED), Low Back Strain (ED) Referrals: Nita Winter MD [Primary Care Provider] - The documentation as recorded by the Dameon miller Billy accurately reflects the service I personally performed and the decisions made by me, Son Dominguez MD.
[2017-01-06 08:49] LABS: Hematocrit 23 % (35-47); Hemoglobin 7.8 g/dl (12.0-16.0); Mean Corpuscular HGB Conc 34 g/dl (31-36); Mean Corpuscular Hemoglobin 29 pg (27-31); Mean Corpuscular Volume 86 fL (80-97); Mean Platelet Volume 9 um3 (7.4-10.4); Red Blood Count 2.68 10^6/ul (4.0-5.4); Red Cell Distribution Width 16 % (10.5-15)
[2017-01-06 08:51] LABS: Comments Flag Yes
[2017-01-06 08:52] LABS: Add Diff/Slide Review? Slide Review Added; White Blood Count 3.3 10^3/ul (3.5-10.8)
[2017-01-06 09:02] LABS: Albumin 3.7 g/dL (3.2-5.2); BUN/Creatinine Ratio 14.2 (8-20); Calcium 9.1 mg/dL (8.6-10.3); EGFR African American 66.9 (>60); Globulin 2.3 g/dL (2-4); Magnesium 1.9 mg/dL (1.9-2.7); Potassium 3.5 mmol/L (3.5-5.0); Total Bilirubin 0.7 mg/dL (0.2-1.0)
[2017-01-06 10:01] LABS: Add Path Review? YES; Eosinophils % 3 % (0-6); Immature Granulocytes 18 % (0-9); Metamyelocytes % 3 % (0-2); Myelocytes % 2 % (0-1); Neutrophil % 39 % (38-83); Promyelocytes % 1 %
[2017-01-06 10:03] LABS: Macrocytosis 1+; Reactive Lymph % 18 % (0-6)
[2017-01-06 10:28] LABS: Manual Entry Verification GRE0060; Mono Internal Control QC Line Present
== END 2017-01-05 22:44 | disposition home or self-care (01) ==
LOC: ED 19:05
DX: S39.012A Strain of muscle, fascia and tendon of lower back, initial encounter (principal); M48.50XA Collapsed vertebra, not elsewhere classified, site unspecified, initial encounter for fracture; X58.XXXA Exposure to other specified factors, initial encounter; Y93.9 Activity, unspecified; Y92.89 Other specified places as the place of occurrence of the external cause; Z88.0 Allergy status to penicillin
CPT/HCPCS: 36415; 72131; 80053; 83735; 85025; 85060; 86308; 96374; 96375; 99282; J1885; J2060

== ENCOUNTER 2017-01-06 21:15 | Emergency (ER) | payer MEDICARE ==
[2017-01-06 22:28] LABS: Hematocrit 20 % (35-47); Hemoglobin 6.9 g/dl (12.0-16.0); Mean Corpuscular HGB Conc 35 g/dl (31-36); Mean Corpuscular Hemoglobin 29 pg (27-31); Mean Corpuscular Volume 84 fL (80-97); Mean Platelet Volume 8 um3 (7.4-10.4); Red Blood Count 2.37 10^6/ul (4.0-5.4); Red Cell Distribution Width 15 % (10.5-15)
[2017-01-06] MEDS ORDERED: oxyCODONE TAB* 5 MG TAB PO ONE (22:39)
[2017-01-06 22:41] LABS: Comments Flag Yes
[2017-01-06 22:42] LABS: White Blood Count 3.2 10^3/ul (3.5-10.8)
[2017-01-06 22:43] LABS: Albumin 3.4 g/dL (3.2-5.2); BUN/Creatinine Ratio 14.6 (8-20); C Reactive Protein 47.56 mg/L (< 5.00); Calcium 9.2 mg/dL (8.6-10.3); EGFR African American 69.2 (>60); EGFR Non-African American 53.8 (>60); Globulin 2.2 g/dL (2-4); Potassium 3.2 mmol/L (3.5-5.0); Total Bilirubin 0.7 mg/dL (0.2-1.0); Total Protein 5.6 g/dL (6.4-8.9)
[2017-01-06 22:45] LABS: Troponin I 0.01 ng/mL (<0.04)
[2017-01-06 22:46] LABS: Add Diff/Slide Review? Manual Diff Added
[2017-01-06 22:48] LABS: Urine Bacteria 1+ (Absent); Urine Bilirubin Negative (Negative); Urine Glucose Negative (Negative); Urine Nitrite Negative (Negative)
--- NOTE | 2017-01-06 22:54 | RAD ---
HISTORY: Fever COMPARISONS: December 26, 2016 VIEWS:1: Single frontal portable view of the chest at 10:39 PM FINDINGS: LINES AND TUBES: A left-sided AICD is noted CARDIOMEDIASTINAL SILHOUETTE: The cardiomediastinal silhouette is normal for portable technique. PLEURA: The costophrenic angles are sharp. No pleural abnormalities are noted. LUNG PARENCHYMA: There is minimal linear opacification of the left lung base ABDOMEN: The upper abdomen is clear. There is no subphrenic gas. BONES AND SOFT TISSUES: No bone or soft tissue abnormalities are noted. IMPRESSION: MINIMAL LINEAR ATELECTASIS OF THE LEFT LUNG BASE
[2017-01-06 23:32] LABS: Metamyelocytes % 4 % (0-2); Myelocytes % 4 % (0-1)
[2017-01-06 23:38] LABS: Immature Granulocytes 25 % (0-9); Neutrophil % 33 % (38-83); Reactive Lymph % 1 % (0-6)
[2017-01-06 23:42] LABS: Add Path Review? YES
[2017-01-07 00:20] VITALS: BP 94/46
--- NOTE | 2017-01-07 00:46 | ED ---
Erna Louis Claudia, scribed for Jessica Cadena MD on 01/06/17 at 2156 . Back Pain - HPI Summary HPI Summary: 66 year old female presents to the ED with lower back pain and fever. Pt notes that the back pain started yesterday but the fever only began a few hours ago. Pt notes the pain 4-5/10 after taking flexerol at home for the pain. Pt states em 2 weeks ago she had a similar episode in that she had lower back pain and then a day later developed a neutropenic fever and needed to be admitted fr4 days. She was at that time d/c with levaquin, bactrium and zyvox which she has been continuously taking since. Pt is concerned because this sounds like the exact same episode that occurred 2 weeks ago. Pt notes she is unable to do a MRI due to defibrillator. Pt denies dysuria. - History of Current Complaint Chief Complaint: EDFever Stated Complaint: FEVER-CHEMO PT Time Seen by Provider: 01/06/17 21:28 Hx Obtained From: Patient Onset/Duration: Sudden Onset, Lasting Days Onset/Duration: Started Hours Ago Timing: Constant Back Pain Location: Is Discrete @ - L5-S1 Pain Intensity: 5 Pain Scale Used: 0-10 Numeric Character: Sharp - 4-5/10 Associated Signs And Symptoms: Positive: Fever - Allergies/Home Medications Allergies/Adverse Reactions: Allergies Allergy/AdvReac Type Severity Reaction Status Date / Time Penicillins [PCN] Allergy Unknown Verified 01/06/17 22:29 Reaction Details Tramadol AdvReac Intermediate GI Upset Verified 01/06/17 22:29 PMH/Surg Hx/FS Hx/Imm Hx Previously Healthy: Yes Endocrine/Hematology History: Reports: Hx Blood Disorders - multiple myeloma, Hx Blood Transfusions, Hx Thyroid Disease - hypothyroidism, Hx Anemia, Hx Unexplained Bleeding Denies: Hx Diabetes Cardiovascular History: Reports: Hx Auto Implanted Cardiovert Defib, Hx Hypercholesterolemia, Hx Hypotension, Hx Pacemaker/ICD, Other Cardiovascular Problems/Disorders - VENTRICULAR TACHYCARDIA Denies: Hx Hypertension Respiratory History: Reports: Hx Asthma - ALLERGIES Denies: Hx Chronic Obstructive Pulmonary Disease (COPD) GI History: Reports: Hx Ulcer - HX DUODENOL ULCER 20 + YRS AGO History: Reports: Hx Acute Renal Failure Denies: Hx Dialysis Musculoskeletal History: Reports: Hx Arthritis - RIGHT ELBOW Denies: Hx Back Problems, Hx Osteoporosis Sensory History: Reports: Hx Contacts or Glasses Denies: Hx Hearing Aid Opthamlomology History: Reports: Hx Contacts or Glasses Neurological History: Denies: Hx Dementia, Hx Seizures - Cancer History Cancer Type, Location and Year: mult myeloma Hx Chemotherapy: Yes Hx Radiation Therapy: Yes - Surgical History Surgery Procedure, Year, and Place: DEFIBRILLATOR-. HEART SURGERY- OPEN- AGE 46. FX RIGHT ELBOW. TONSILS OUT ACHILD. Willie holes Hx Anesthesia Reactions: No Infectious Disease History: Denies: Traveled Outside the [place] in Last 30 Days - Family History Known Family History: Positive: Diabetes - Pt reports possible DM in mother Negative: Cardiac Disease - Social History Lives: With Family Alcohol Use: None Hx Substance Use: No Substance Use Type: Reports: None Hx Tobacco Use: No Smoking Status (MU): Never Smoked Tobacco Have You Smoked in the Last Year: No Review of Systems Positive: Fever Eyes: Negative ENT: Negative Cardiovascular: Negative Respiratory: Negative Gastrointestinal: Negative Genitourinary: Negative Positive: Other - back pain Skin: Negative Neurological: Negative Psychological: Normal All Other Systems Reviewed And Are Negative: Yes Physical Exam Triage Information Reviewed: Yes Vital Signs On Initial Exam: Initial Vitals Temp Pulse Resp BP Pulse Ox 100.8 F 86 18 92/47 97 01/06/17 21:20 01/06/17 21:20 01/06/17 21:20 01/06/17 21:20 01/06/17 21:20 Vital Signs Reviewed: Yes Appearance: Positive: Well-Appearing, No Pain Distress Skin: Positive: Warm, Skin Color Reflects Adequate Perfusion, Dry Eyes: Positive: EOMI, SUHAS Neck: Positive: Supple, Nontender Respiratory/Lung Sounds: Positive: Clear to Auscultation, Breath Sounds Present. Negative: Rales, Rhonchi Cardiovascular: Positive: RRR. Negative: Murmur, Rub, Leg Edema Left, Leg Edema Right Abdomen Description: Positive: Nontender, Soft. Negative: Distended, Guarding Musculoskeletal: Positive: Strength/ROM Intact Neurological: Positive: Sensory/Motor Intact, Alert, Oriented to Person Place, Time, CN Intact II-III Psychiatric: Positive: Affect/Mood Appropriate Diagnostics - Vital Signs Vital Signs Temp Pulse Resp BP Pulse Ox 01/06/17 21:20 100.8 F 86 18 92/47 97 - Laboratory Lab Results: Lab Results 01/06/17 01/06/17 01/06/17 Range/Units 22:05 22:05 22:05 WBC 3.2 L (3.5-10.8) 10^3/ul RBC 2.37 L (4.0-5.4) 10^6/ul Hgb 6.9 L (12.0-16.0) g/dl Hct 20 L (35-47) % MCV 84 (80-97) fL MCH 29 (27-31) pg MCHC 35 (31-36) g/dl RDW 15 (10.5-15) % Plt Count 31 L D (150-450) 10^3/ul MPV 8 (7.4-10.4) um3 Immature Gran % (Auto) 25 H (0-9) % Absolute Neuts (auto) 1.6 (1.5-7.7) 10^3/ul Absolute Lymphs (auto) 1.0 (1.0-4.8) 10^3/ul Absolute Monos (auto) 0.4 (0-0.8) 10^3/ul Absolute Eos (auto) 0 (0-0.6) 10^3/ul Absolute Basos (auto) 0 (0-0.2) 10^3/ul Absolute Nucleated RBC 0.1 10^3/ul Neutrophils % 33 L (38-83) % Band Neutrophils % 17 H (0-8) % Lymphocytes % 30 (25-47) % Reactive Lymphs % 1 D (0-6) % Monocytes % 11 (0-13) % Metamyelocytes % 4 H (0-2) % Myelocytes % 4 H (0-1) % Nucleated RBCs/100 WBC 4 H (0-0) Normal RBC Morphology Not Reportable Hem Pathologist Commnt Pending INR (Anticoag Therapy) 1.23 H (0.89-1.11) APTT 26.1 (26.0-36.3) seconds Sodium 134 (133-145) mmol/L Potassium 3.2 L (3.5-5.0) mmol/L Chloride 101 (101-111) mmol/L Carbon Dioxide 24 (22-32) mmol/L Anion Gap 9 (2-11) mmol/L BUN 15 (6-24) mg/dL Creatinine 1.03 H (0.51-0.95) mg/dL Est GFR ( Amer) 69.2 (>60) Est GFR (Non-Af Amer) 53.8 (>60) BUN/Creatinine Ratio 14.6 (8-20) Glucose 142 H (70-100) mg/dL Lactic Acid (0.5-2.0) mmol/L Calcium 9.2 (8.6-10.3) mg/dL Total Bilirubin 0.70 (0.2-1.0) mg/dL AST 54 H (13-39) U/L ALT 46 (7-52) U/L Alkaline Phosphatase 96 (34-104) U/L Troponin I 0.01 (<0.04) ng/mL C-Reactive Protein 47.56 H (< 5.00) mg/L Total Protein 5.6 L (6.4-8.9) g/dL Albumin 3.4 (3.2-5.2) g/dL Globulin 2.2 (2-4) g/dL Albumin/Globulin Ratio 1.5 (1-3) Urine Color Urine Appearance Urine pH (5-9) Ur Specific Rattan (1.010-1.030) Urine Protein (Negative) Urine Ketones (Negative) Urine Blood (Negative) Urine Nitrate (Negative) Urine Bilirubin (Negative) Urine Urobilinogen (Negative) Ur Leukocyte Esterase (Negative) Urine WBC (Auto) (Absent) Urine RBC (Auto) (Absent) Ur Squamous Epith Cells (Absent) Urine Bacteria (Absent) Urine Glucose (Negative) 01/06/17 01/06/17 Range/Units 22:05 22:25 WBC (3.5-10.8) 10^3/ul RBC (4.0-5.4) 10^6/ul Hgb (12.0-16.0) g/dl Hct (35-47) % MCV (80-97) fL MCH (27-31) pg MCHC (31-36) g/dl RDW (10.5-15) % Plt Count (150-450) 10^3/ul MPV (7.4-10.4) um3 Immature Gran % (Auto) (0-9) % Absolute Neuts (auto) (1.5-7.7) 10^3/ul Absolute Lymphs (auto) (1.0-4.8) 10^3/ul Absolute Monos (auto) (0-0.8) 10^3/ul Absolute Eos (auto) (0-0.6) 10^3/ul Absolute Basos (auto) (0-0.2) 10^3/ul Absolute Nucleated RBC 10^3/ul Neutrophils % (38-83) % Band Neutrophils % (0-8) % Lymphocytes % (25-47) % Reactive Lymphs % (0-6) % Monocytes % (0-13) % Metamyelocytes % (0-2) % Myelocytes % (0-1) % Nucleated RBCs/100 WBC (0-0) Normal RBC Morphology Hem Pathologist Commnt INR (Anticoag Therapy) (0.89-1.11) APTT (26.0-36.3) seconds Sodium (133-145) mmol/L Potassium (3.5-5.0) mmol/L Chloride (101-111) mmol/L Carbon Dioxide (22-32) mmol/L Anion Gap (2-11) mmol/L BUN (6-24) mg/dL Creatinine (0.51-0.95) mg/dL Est GFR ( Amer) (>60) Est GFR (Non-Af Amer) (>60) BUN/Creatinine Ratio (8-20) Glucose (70-100) mg/dL Lactic Acid 1.3 (0.5-2.0) mmol/L Calcium (8.6-10.3) mg/dL Total Bilirubin (0.2-1.0) mg/dL AST (13-39) U/L ALT (7-52) U/L Alkaline Phosphatase (34-104) U/L Troponin I (<0.04) ng/mL C-Reactive Protein (< 5.00) mg/L Total Protein (6.4-8.9) g/dL Albumin (3.2-5.2) g/dL Globulin (2-4) g/dL Albumin/Globulin Ratio (1-3) Urine Color Straw Urine Appearance Clear Urine pH 6.0 (5-9) Ur Specific Rattan 1.006 L (1.010-1.030) Urine Protein Negative (Negative) Urine Ketones Negative (Negative) Urine Blood 1+ H (Negative) Urine Nitrate Negative (Negative) Urine Bilirubin Negative (Negative) Urine Urobilinogen Negative (Negative) Ur Leukocyte Esterase Negative (Negative) Urine WBC (Auto) Trace(0-5/hpf) (Absent) Urine RBC (Auto) 1+(3-5/hpf) H (Absent) Ur Squamous Epith Cells Present H (Absent) Urine Bacteria 1+ H (Absent) Urine Glucose Negative (Negative) Result Diagrams: 01/06/17 22:05 01/06/17 22:05 Lab Statement: Any lab studies that have been ordered have been reviewed, and results considered in the medical decision making process. - Radiology CXR Xray Interpretation: Positive (See Comments) - MINIMAL LINEAR ATELECTASIS OF THE LEFT LUNG BASE Radiology Interpretation Completed By: Radiologist Back Pain Course/Dx - Course Course Of Treatment: Case discussed with Dr. Mckeon pt not truly neutropenic and is on 3 abx already. we discussed the back pain and the question of infection related to the pain in this area he assured me they will followup on this in the office tomorrow - Diagnoses Provider Diagnoses: Fever, Back pain - Provider Notifications Discussed Care of Patient With: DISCUSSED CARE OF PATIENT WITH DR. CAMPO TO DISCUSS CONCERN ABOUT THE BACK PAIN AND FEVER AND HE NOTES THAT HE WILL LOOK INTO IT. Time Discussed With Above Provider: 00:06 Discharge - Discharge Plan Condition: Stable Disposition: HOME Patient Education Materials: Fever in Adults (ED), Back Pain (ED) Referrals: Nita Rojas MD [Primary Care Provider] - 1 Day (PLEASE FOLLOW-UP TOMORROW ) The documentation as recorded by the Erna miller Claudia accurately reflects the service I personally performed and the decisions made by me, Jessica Cadena MD.
== END 2017-01-07 00:26 | disposition home or self-care (01) ==
LOC: ED 21:15
DX: M54.5 Low back pain (principal); R50.9 Fever, unspecified
CPT/HCPCS: 36415; 71010; 80053; 81003; 81015; 83605; 84484; 85025; 85060; 85610; 85730; 86140; 87040; 87086; 99282; A9270-GY

== ENCOUNTER 2017-04-16 16:49 | Emergency (ER) | payer MEDICARE ==
[2017-04-16] MEDS ORDERED: Ibuprofen TAB* 400 MG PO ONE (17:15)
[2017-04-16] MEDS ORDERED: Acetaminophen TAB* 325 MG PO ONE (17:36)
[2017-04-16] MEDS ORDERED: Acetaminophen TAB* 325 MG ONE (17:38)
--- NOTE | 2017-04-16 17:38 | RAD ---
HISTORY: Fever COMPARISONS: January 06, 2017 VIEWS:1: Single frontal portable view of the chest at 5:25 PM FINDINGS: LINES AND TUBES: A left-sided AICD is noted CARDIOMEDIASTINAL SILHOUETTE: The cardiomediastinal silhouette is normal for portable technique. PLEURA: The costophrenic angles are sharp. No pleural abnormalities are noted. LUNG PARENCHYMA: The lungs are clear. ABDOMEN: The upper abdomen is clear. There is no subphrenic gas. BONES AND SOFT TISSUES: The patient is status post median sternotomy. IMPRESSION: NO ACTIVE CARDIOPULMONARY DISEASE.
[2017-04-16 18:13] LABS: Hematocrit 20 % (35-47); Hemoglobin 6.9 g/dl (12.0-16.0); Mean Corpuscular HGB Conc 34 g/dl (31-36); Mean Corpuscular Hemoglobin 30 pg (27-31); Mean Corpuscular Volume 88 fL (80-97); Mean Platelet Volume 8 um3 (7.4-10.4); Red Cell Distribution Width 15 % (10.5-15); White Blood Count 4.7 10^3/ul (3.5-10.8)
[2017-04-16 18:15] LABS: Comments Flag Yes
[2017-04-16 18:16] LABS: Add Diff/Slide Review? Manual Diff Added
[2017-04-16 18:18] LABS: Albumin 3.6 g/dL (3.2-5.2); BUN/Creatinine Ratio 17.5 (8-20); Calcium 9.2 mg/dL (8.6-10.3); EGFR African American 74.1 (>60); EGFR Non-African American 57.6 (>60); Globulin 2.4 g/dL (2-4); Potassium 3.8 mmol/L (3.5-5.0); Total Bilirubin 0.9 mg/dL (0.2-1.0)
[2017-04-16 18:20] LABS: Troponin I 0.03 ng/mL (<0.04)
[2017-04-16] MEDS ORDERED: NS 0.9% 1000 ML* 1,000 ML IV ONE (18:37)
[2017-04-16] MEDS ORDERED: Levofloxacin 750 MG IVPREMIX(* 750 MG/150 ML BAG IVPB ONE (18:38)
[2017-04-16 18:47] LABS: Immature Granulocytes 17 % (0-9); Metamyelocytes % 4 % (0-2); Myelocytes % 3 % (0-1); Neutrophil % 30 % (38-83); Reactive Lymph % 1 % (0-6)
[2017-04-16 18:48] LABS: Hypochromasia 1+; Toxic Granulation 2+
[2017-04-16 18:49] LABS: Add Path Review? YES; Polychromasia 1+
[2017-04-16 19:12] LABS: Urine Bacteria Absent (Absent); Urine Bilirubin Negative (Negative); Urine Glucose Negative (Negative); Urine Nitrite Negative (Negative)
[2017-04-16 21:12] VITALS: BP 102/49
[2017-04-17 11:11] LABS: Mean Platelet Volume 8 um3 (7.4-10.4)
[2017-04-17 11:19] LABS: Comments Flag Yes
--- NOTE | 2017-04-17 22:41 | ED ---
Yaw Louis Thomas, scribed for Nicolas Diez MD on 04/16/17 at 1744 . HPI Febrile Illness - HPI Summary HPI Summary: The pt is a 66 y/o F with a Hx of multiple myeloma BIBA after her called EMS today. He was gone for an hour and when he returned, the pt was disoriented to time and date. The took her temperature she was febrile ( Tmax 102.3), after which he called EMS. She additionally c/o back pain (per , typical), leg pain (per , typical), intermittent dizziness, intermittent lightheadedness, ecchymosis. She denies dysuria, hematuria, cough, SOB, CP, neck pain, myalgia, vomiting, diarrhea. The pt had infusions three days ago of RBCs and platelets. She denies a recent exposure to a sick individual. She does not have a Port-a-cath. Her thinks that she is neutropenic. Dr. Silveira previously recommended that the pt increase oxycontin from BID to TID, and oxycodone from every 4 hours to every 3 hours. SHx: no alcohol use, no tobacco use (although does smoke). She has been in the hospital 4 or 5 times in the last year, once for pneumonia. She has not been tested for Lyme disease. - History of Current Complaint Chief Complaint: EDGeneral Time Seen by Provider: 04/16/17 17:34 Hx Obtained From: Patient Onset/Duration: Started Days Ago - 1, Still Present, Worse Since - today Pain Intensity: 6 Pain Scale Used: 0-10 Numeric Associated Signs and Symptoms: Dizziness - intermittent, Other: - POS: disorientation to time and date (resolved), back pain, leg pain, lightheadedness (intermittent), fever (Tmax 102.3), ecchymosis. NEG: dysuria, hematuria, cough, SOB, CP, neck pain, myalgia, vomiting, diarrhea. - Additional Pertinent History Primary Care Physician: - Allergy/Home Medications Allergies/Adverse Reactions: Allergies Allergy/AdvReac Type Severity Reaction Status Date / Time Penicillins [PCN] Allergy Unknown Verified 03/24/17 11:23 Reaction Details Tramadol AdvReac Intermediate GI Upset Verified 03/24/17 11:23 PMH/Surg Hx/FS Hx/Imm Hx Previously Healthy: No Endocrine/Hematology History: Reports: Hx Blood Disorders - multiple myeloma, Hx Blood Transfusions, Hx Thyroid Disease - hypothyroidism, Hx Anemia, Hx Unexplained Bleeding Denies: Hx Diabetes Cardiovascular History: Reports: Hx Auto Implanted Cardiovert Defib, Hx Hypercholesterolemia, Hx Hypotension, Hx Pacemaker/ICD, Other Cardiovascular Problems/Disorders - VENTRICULAR TACHYCARDIA Denies: Hx Hypertension Respiratory History: Reports: Hx Asthma - ALLERGIES Denies: Hx Chronic Obstructive Pulmonary Disease (COPD) GI History: Reports: Hx Ulcer - HX DUODENOL ULCER 20 + YRS AGO History: Reports: Hx Acute Renal Failure Denies: Hx Dialysis Musculoskeletal History: Reports: Hx Arthritis - RIGHT ELBOW Denies: Hx Back Problems, Hx Osteoporosis Sensory History: Reports: Hx Contacts or Glasses Denies: Hx Hearing Aid Opthamlomology History: Reports: Hx Contacts or Glasses Neurological History: Denies: Hx Dementia, Hx Seizures - Cancer History Cancer Type, Location and Year: mult myeloma Hx Chemotherapy: Yes Hx Radiation Therapy: Yes - Surgical History Surgery Procedure, Year, and Place: DEFIBRILLATOR-. HEART SURGERY- OPEN- AGE 46. FX RIGHT ELBOW. TONSILS OUT ACHILD. [place] holes Hx Anesthesia Reactions: No Infectious Disease History: Yes Infectious Disease History: Denies: Traveled Outside the [place] in Last 30 Days - Family History Known Family History: Positive: Diabetes - Pt reports possible DM in mother Negative: Cardiac Disease - Social History Alcohol Use: None Hx Substance Use: No Substance Use Type: Reports: None Hx Tobacco Use: No Smoking Status (MU): Never Smoked Tobacco Have You Smoked in the Last Year: No Review of Systems Positive: Fever - Tmax 102.3. Negative: Chills Eyes: Negative Negative: Erythema - eyes ENT: Negative, Other - NEG: neck pain Negative: Sore Throat Cardiovascular: Negative Negative: Chest Pain Respiratory: Negative Negative: Shortness Of Breath, Cough Gastrointestinal: Negative Negative: Abdominal Pain, Diarrhea, Nausea Genitourinary: Negative Negative: dysuria, hematuria Musculoskeletal: Other - POS: back pain (chronic), leg pain (chronic), Negative: Myalgia, Edema - leg Positive: Bruising. Negative: Rash Neurological: Other - POS: disorientation to time and date, dizziness ( intermittent) Psychological: Normal All Other Systems Reviewed And Are Negative: Yes Physical Exam - Summary Physical Exam Summary: Constitutional: Well-developed, emaciated, Alert. (-) Distressed Skin: Hot to the touch, dry HENT: Normocephalic; Atraumatic Eyes: Conjunctiva normal Neck: Musculoskeletal ROM normal neck. (-) JVD, (-) Stridor, (-) Tracheal deviation Cardio: Rhythm regular, rate normal, Heart sounds normal; Intact distal pulses; The pedal pulses are 2+ and symmetric. Radial pulses are 2+ and symmetric. (-) Murmur Pulmonary/Chest wall: Effort normal. (-) Respiratory distress, (-) Wheezes, (-) Rales Abd: Soft, (-) Tenderness, (-) Distension, (-) Guarding, (-) Rebound Musculoskeletal: (-) Edema Lymph: (-) Cervical adenopathy Neuro: Alert, Oriented x3 Psych: Mood and affect Normal Triage Information Reviewed: Yes Vital Signs On Initial Exam: Initial Vitals Temp Pulse Resp BP Pulse Ox 102.3 F 97 20 107/49 94 04/16/17 16:57 04/16/17 16:57 04/16/17 16:57 04/16/17 16:57 04/16/17 16:57 Vital Signs Reviewed: Yes - Gaby Coma Scale Coma Scale Total: 15 Diagnostics - Vital Signs Vital Signs Temp Pulse Resp BP Pulse Ox 04/16/17 17:04 24 04/16/17 16:57 102.3 F 97 20 107/49 94 - Laboratory Result Diagrams: 04/16/17 17:34 04/16/17 17:34 Lab Statement: Any lab studies that have been ordered have been reviewed, and results considered in the medical decision making process. - Radiology CXR Xray Interpretation: No Acute Changes - No active cardiopulmonary disease. Radiology Interpretation Completed By: Radiologist - EKG 18:45 Cardiac Rate: NL - 89 BPM EKG Interpretation: Sinus rhythm. No STEMI. Course/Dx - Course Assessment/Plan: The pt is a 66 y/o F with a Hx of multiple myeloma BIBA after her called EMS today. He was gone for an hour and when he returned, the pt was disoriented to time and date. The took her temperature she was febrile (Tmax 102.3), after which he called EMS. She additionally c/o back pain (per , typical), leg pain (per , typical), intermittent dizziness , intermittent lightheadedness, ecchymosis. She denies dysuria, hematuria, cough , SOB, CP, neck pain, myalgia, vomiting, diarrhea. The pt had infusions three days ago of RBCs and platelets. She denies a recent exposure to a sick individual. She does not have a Port-a-cath. Her thinks that she is neutropenic. Dr. Silveira previously recommended that the pt increase oxycontin from BID to TID, and oxycodone from every 4 hours to every 3 hours. SHx: no alcohol use, no tobacco use (although does smoke). She has been in the hospital 4 or 5 times in the last year, once for pneumonia. She has not been tested for Lyme disease. Consulted with Dr. Silveira, who was made aware that pt is febrile. Because the pt was nontoxic in appearance, he recommended discharging becaues hospitalization would increase the risk of infection. He plans to transfuse the pt tmrw as an outpatient because she is not actively bleeding and he will make those arrangements. He recommended 750 BID Levaquin. Bloodwork reveals 8 Plt count, Blast cell % 21. CXR revealed Sinus rhythm, no STEMI. CXR reveals no active cardiopulmonary disease. Pt was diagnosed with thrombocytopenia and fever of unknown origin. She appears to be drowsy. Sign out plan is to assess urine and Dr. Lowe needs to re-evaluate the pt if not back to baseline mental status, then observation status if not. - Diagnoses Provider Diagnoses: Thrombocytopenia, Fever of unknown origin - Provider Notifications Discussed Care Of Patient With: Israel Silveira Time Discussed With Above Provider: 17:50 Instructed by Provider To: Other - Informed Dr. Bingham that pt was in the ED and was febrile. Because the pt was nontoxic in appearance, he recommended discharging becaues hospitalization would increase the risk of infection. He plans to transfuse the pt tmrw as an outpatient because she is not actively bleeding and he will make those arrangements. He recommended 750 BID Levaquin Discharge - Discharge Plan Condition: Fair Disposition: OTHER Discharge Disposition Comment: Signed off to Dr. Lowe pending dispo awaiting UA. Prescriptions: Levofloxacin TAB* [Levaquin 750 MG TAB*] 750 mg PO BID #14 tab Patient Education Materials: Fever in Adults (ED), Thrombocytopenia (ED) Referrals: Israel Silveira MD [Medical Doctor] - 1 Day (Follow up tomorrow with Dr. Silviera for platelet transfusion. ) Additional Instructions: RETURN TO THE EMERGENCY DEPARTMENT FOR CHANGING OR WORSENING SYMPTOMS The documentation as recorded by the Yaw miller Thomas accurately reflects the service I personally performed and the decisions made by me, Nicolas Diez MD.
== END 2017-04-16 21:12 ==
LOC: ED 16:49
DX: D69.6 Thrombocytopenia, unspecified (principal); R50.9 Fever, unspecified; Z88.0 Allergy status to penicillin; C90.00 Multiple myeloma not having achieved remission; E03.9 Hypothyroidism, unspecified; J45.909 Unspecified asthma, uncomplicated
CPT/HCPCS: 36415; 71010; 80053; 81003; 81015; 83605; 84484; 85025; 85049; 85060; 85610; 85730; 86850; 86900; 86901; 86922; 87040; 87502; 93005; 96360; 96374; 99283; A9270-GY; P9016; P9035